=== PATIENT | male | born 1955 | race Caucasian/White ===

== ENCOUNTER 2018-07-12 15:07 | Inpatient (IN) | payer OTHER, SELFPAY ==
[~2018-07-12] VITALS: Ht 177.8 cm; Wt 89.1 kg
[2018-07-12] MEDS ORDERED: SODIUM CHLORIDE 0.9% 1,000 ML IV ONE (15:19)
[2018-07-12 15:44] LABS: BASOPHILS # (AUTO) 0.01 x10^3/uL (0-0.1); BASOPHILS % (AUTO) 0 % (0-1); EOSINOPHILS # (AUTO) 0.09 x10^3/uL (0-0.4); EOSINOPHILS % (AUTO) 1 % (1-7); LYMPHOCYTES # (AUTO) 0.84 x10^3/uL (1-3.4); LYMPHOCYTES % (AUTO) 11 % (22-44); MD NO; MEAN CORPUSCULAR HGB CONC 33.8 g/dL (33.2-36.2); MEAN CORPUSCULAR VOLUME 88.7 fL (81-97); MEAN PLATELET VOLUME 7.7 fL (7.4-10.4); MONOCYTES # (AUTO) 0.56 x10^3/uL (0.2-0.8); MONOCYTES % (AUTO) 7 % (2-9); NEUTROPHILS # (AUTO) 6.27 x10^3/uL (1.8-6.8); NEUTROPHILS % (AUTO) 81 % (42-75); PLATELET COUNT 297 x10^3/uL (130-400); RED BLOOD COUNT 4.05 x10^6/uL (4.38-5.82); RED CELL DISTRIBUTION WIDTH 13.5 % (9.4-14.8)
[2018-07-12 15:57] LABS: ALBUMIN 2.4 g/dL (3.4-5.0); ANION GAP 11 mmol/L (5-15); CALCIUM 8.9 mg/dL (8.5-10.1); CHLORIDE 107 mmol/L (98-107)
[2018-07-12 15:58] LABS: CREATININE 1.13 mg/dL (0.7-1.3)
[2018-07-12] MEDS ORDERED: OMNIPAQUE 350 MG/ML, 100ML BOTTLE ONE (16:37)
[2018-07-12] MEDS ORDERED: GADOBUTROL 10 MMOL/10 ML PFS ONE (17:31)
[2018-07-12] MEDS ORDERED: VIT C (17:47)
[2018-07-12] MEDS ORDERED: MULTIVITAMIN (17:47)
[2018-07-12] MEDS ORDERED: CEPH-368 PO (17:47)
[2018-07-12] MEDS ORDERED: AMPICILLIN/SULBACTAM 3 GM in SODIUM CHLORIDE 0.9% 100 ML IV ONE (18:00)
[2018-07-12 20:27] VITALS: BP 135/101
[2018-07-12] MEDS ORDERED: ONDANSETRON 2MG/ML, 2ML IVPush PRN (21:30)
[2018-07-12] MEDS ORDERED: hydrALAzine 20 MG/ML, 1ML IVPush PRN (21:30)
[2018-07-12] MEDS ORDERED: TEMAZEPAM 15 MG CAPSULE PO PRN (21:30)
[2018-07-12] MEDS ORDERED: BISACODYL 10 MG SUPP PR PRN (21:30)
[2018-07-12] MEDS ORDERED: ACETAMINOPHEN 325 MG TABLET PO PRN (21:30)
[2018-07-12] MEDS: INDOMETHACIN 50 MG CAPSULE PO SCH (22:00)
[2018-07-12 22:26] VITALS: BP 130/84
[2018-07-12] MEDS ORDERED: INDOMETHACIN 25 MG CAPSULE ONE (22:31)
[2018-07-12] MEDS: AMPICILLIN/SULBACTAM 3 GM in SODIUM CHLORIDE 0.9% 100 ML IV SCH (23:40)
[2018-07-12 23:57] VITALS: BP 138/93
[2018-07-13] MEDS: AMPICILLIN/SULBACTAM 3 GM in SODIUM CHLORIDE 0.9% 100 ML IV SCH ×3 (05:12→18:48)
[2018-07-13 06:57] VITALS: BP 134/84
[2018-07-13] MEDS: INDOMETHACIN 50 MG CAPSULE PO SCH ×3 (09:40→21:33)
[2018-07-13] MEDS ORDERED: LIDOCAINE 1%-EPI 1:100K, 30ML ONE (11:50)
[2018-07-13] MEDS: ENOXAPARIN 40 MG/0.4 ML SQ SCH (12:35)
[2018-07-13 13:01] VITALS: BP 118/77
[2018-07-13] MEDS ORDERED: OMNIPAQUE 350 MG/ML, 75ML BOTTLE ONE (14:30)
[2018-07-13 19:50] VITALS: BP 110/66
[2018-07-14] MEDS: AMPICILLIN/SULBACTAM 3 GM in SODIUM CHLORIDE 0.9% 100 ML IV SCH ×3 (00:44→11:54)
[2018-07-14 02:45] VITALS: BP 126/91
[2018-07-14 05:24] LABS: ALBUMIN 1.9 g/dL (3.4-5.0); ANION GAP 10 mmol/L (5-15); CALCIUM 8.1 mg/dL (8.5-10.1); CHLORIDE 110 mmol/L (98-107)
[2018-07-14 05:27] LABS: ALANINE AMINOTRANSFERASE 11 U/L (12-78); ALKALINE PHOSPHATASE 111 U/L (45-117); BILIRUBIN,TOTAL 0.4 mg/dL (0.2-1.0); CREATININE 0.91 mg/dL (0.7-1.3); TOTAL PROTEIN 5.7 g/dL (6.4-8.2)
[2018-07-14 05:34] LABS: BASOPHILS # (AUTO) 0.02 x10^3/uL (0-0.1); BASOPHILS % (AUTO) 0 % (0-1); EOSINOPHILS # (AUTO) 0.13 x10^3/uL (0-0.4); EOSINOPHILS % (AUTO) 3 % (1-7); LYMPHOCYTES # (AUTO) 0.45 x10^3/uL (1-3.4); LYMPHOCYTES % (AUTO) 9 % (22-44); MD NO; MEAN CORPUSCULAR HEMOGLOBIN 30.3 pg (27.5-34.5); MEAN CORPUSCULAR HGB CONC 33.9 g/dL (33.2-36.2); MEAN CORPUSCULAR VOLUME 89.4 fL (81-97); MEAN PLATELET VOLUME 7.5 fL (7.4-10.4); MONOCYTES # (AUTO) 0.38 x10^3/uL (0.2-0.8); MONOCYTES % (AUTO) 8 % (2-9); NEUTROPHILS # (AUTO) 3.94 x10^3/uL (1.8-6.8); NEUTROPHILS % (AUTO) 80 % (42-75); PLATELET COUNT 223 x10^3/uL (130-400); RED BLOOD COUNT 3.43 x10^6/uL (4.38-5.82); RED CELL DISTRIBUTION WIDTH 13.7 % (9.4-14.8)
[2018-07-14 06:41] VITALS: BP 132/84
[2018-07-14] MEDS: INDOMETHACIN 50 MG CAPSULE PO SCH ×2 (09:01→17:09)
[2018-07-14] MEDS: ENOXAPARIN 40 MG/0.4 ML SQ SCH (11:54)
[2018-07-14 13:20] VITALS: BP 119/80
== END 2018-07-14 18:04 | disposition home or self-care (01) | DRG 840 ==
LOC: ED 17:52 → EDIP 18:13 → 3NW 20:15
PROVIDERS: ADMIT Internal Medicine; ATTEND Internal Medicine
PROC: 3E013GC Introduction of Other Therapeutic Substance into Subcutaneous Tissue, Percutaneous Approach (ICD-10-PCS; principal; 2018-07-13)
PROC: 0JB10ZX Excision of Face Subcutaneous Tissue and Fascia, Open Approach, Diagnostic (ICD-10-PCS; 2018-07-13)
DX: C83.31 Diffuse large B-cell lymphoma, lymph nodes of head, face, and neck (principal); E43 Unspecified severe protein-calorie malnutrition; C41.1 Malignant neoplasm of mandible; C78.00 Secondary malignant neoplasm of unspecified lung; L02.01 Cutaneous abscess of face; M84.58XA Pathological fracture in neoplastic disease, other specified site, initial encounter for fracture; M89.8X8 Other specified disorders of bone, other site; M10.9 Gout, unspecified; R59.1 Generalized enlarged lymph nodes; F17.210 Nicotine dependence, cigarettes, uncomplicated; Z82.3 Family history of stroke; Z82.5 Family history of asthma and other chronic lower respiratory diseases; Z83.3 Family history of diabetes mellitus
CPT/HCPCS: 36415; 70487; 70543; 71260; 80048; 80053; 82040; 83605; 83735; 84100; 84145; 84550; 85025; 87040; 88305; 88331; 88341; 88342; 88360; 90656; 99285; A9585; G0378; J0295; J1650; J3490; Q9967; J7030

== ENCOUNTER 2018-07-22 21:12 | Inpatient (IN) | payer OTHER ==
[~2018-07-22] VITALS: Ht 177.8 cm; Wt 84.2 kg
[~2018-07-22 21:12] MED LIST: CEPH-368 PO; MULTIVITAMIN; VIT C
[2018-07-22 21:52] LABS: BASOPHILS # (AUTO) 0.01 x10^3/uL (0-0.1); BASOPHILS % (AUTO) 0 % (0-1); EOSINOPHILS # (AUTO) 0.03 x10^3/uL (0-0.4); EOSINOPHILS % (AUTO) 1 % (1-7); LYMPHOCYTES # (AUTO) 0.73 x10^3/uL (1-3.4); LYMPHOCYTES % (AUTO) 15 % (22-44); MD NO; MEAN CORPUSCULAR HEMOGLOBIN 29.5 pg (27.5-34.5); MEAN CORPUSCULAR HGB CONC 33.8 g/dL (33.2-36.2); MEAN CORPUSCULAR VOLUME 87.4 fL (81-97); MEAN PLATELET VOLUME 7.6 fL (7.4-10.4); MONOCYTES # (AUTO) 0.63 x10^3/uL (0.2-0.8); MONOCYTES % (AUTO) 13 % (2-9); NEUTROPHILS # (AUTO) 3.55 x10^3/uL (1.8-6.8); NEUTROPHILS % (AUTO) 72 % (42-75); PLATELET COUNT 251 x10^3/uL (130-400); RED BLOOD COUNT 3.35 x10^6/uL (4.38-5.82)
[2018-07-22 22:05] LABS: ALANINE AMINOTRANSFERASE 14 U/L (12-78); ALBUMIN 2.1 g/dL (3.4-5.0); ANION GAP 9 mmol/L (5-15); CALCIUM 8.6 mg/dL (8.5-10.1); CHLORIDE 103 mmol/L (98-107); CREATININE 1.15 mg/dL (0.7-1.3)
[2018-07-22 22:07] LABS: ALKALINE PHOSPHATASE 156 U/L (45-117); BILIRUBIN,TOTAL 0.5 mg/dL (0.2-1.0); TOTAL PROTEIN 6.3 g/dL (6.4-8.2)
[2018-07-22] MEDS ORDERED: OMNIPAQUE 350 MG/ML, 100ML BOTTLE ONE (22:20)
[2018-07-22] MEDS ORDERED: OXYC-302 PO (23:17)
--- NOTE | 2018-07-22 23:17 | NUR ---
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 vss stable facial lymphoma was started 2 weeks ago not pus and draining from the rt side face and swollen but swallow and drininking was ok per daughter report
--- NOTE | 2018-07-22 23:18 | NUR ---
lower abdomen is draining pus like or bowel ?? odorous smells vss stable pt will be admitted
[2018-07-22] MEDS ORDERED: PIPERACILLIN/TAZO/PMX 3.375GM 50 ML ONE (23:24)
[2018-07-22] MEDS ORDERED: PIPERACILLIN/TAZO/PMX 3.375GM 50 ML IVPB ONE (23:30)
[2018-07-22] MEDS ORDERED: VANCOMYCIN PER PHARMACY IV ONE (23:30)
[2018-07-22] MEDS ORDERED: VANCOMYCIN 1,600 MG in SODIUM CHLORIDE 0.9% 250 ML IV ONE (23:30)
[2018-07-22] MEDS ORDERED: SODIUM CHLORIDE 0.9% 1,000ML IVBOLUS ONE (23:30)
[2018-07-23] MEDS ORDERED: SODIUM CHLORIDE 0.9% 1,000 ML IV ONE (00:01)
[2018-07-23] MEDS ORDERED: MORPHINE SULFATE 4 MG/ML, 1ML IVPush PRN (00:30)
[2018-07-23] MEDS ORDERED: ONDANSETRON 2MG/ML, 2ML IVPush PRN ×2 (00:30→05:00)
[2018-07-23 01:25] VITALS: BP 125/79
[2018-07-23] MEDS ORDERED: hydrALAzine 20 MG/ML, 1ML IVPush PRN (05:00)
[2018-07-23] MEDS ORDERED: ONDANSETRON ODT 4 MG PO PRN (05:00)
[2018-07-23] MEDS ORDERED: ACETAMINOPHEN 325 MG TABLET PO PRN (05:00)
[2018-07-23] MEDS ORDERED: MEROPENEM 1 GM in SODIUM CHLORIDE 0.9% 100 ML IV SCH (05:00)
[2018-07-23] MEDS ORDERED: PROMETHAZINE 25 MG/ML, 1ML IM PRN (05:00)
[2018-07-23] MEDS: D5%-0.9% NACL+KCL 20MEQ 1,000 ML IV SCH ×3 (06:08→23:37)
[2018-07-23] MEDS: HEPARIN 5,000 UNITS/ML, 1ML SQ SCH ×3 (06:08→21:38)
[2018-07-23] MEDS: PIPERACILLIN/TAZO/PMX 3.375GM 50 ML IV SCH ×4 (06:08→23:37)
[2018-07-23 08:06] VITALS: BP 117/77
[2018-07-23] MEDS ORDERED: FENTANYL PF 100 MCG/2ML ONE (12:41)
[2018-07-23] MEDS ORDERED: MIDAZOLAM 1 MG/ML, 5ML ONE (12:41)
[2018-07-23] MEDS ORDERED: FLUMAZENIL 0.1 MG/1 ML, 5ML ONE (12:42)
[2018-07-23] MEDS ORDERED: NALOXONE 1 MG/ML, 2ML ONE (12:42)
[2018-07-23] MEDS ORDERED: LIDOCAINE-MPF 1%, 5ML ONE (13:08)
[2018-07-23 14:00] VITALS: BP 121/76
[2018-07-23 16:09] VITALS: BP 116/74
[2018-07-23 19:39] VITALS: BP 109/69
[2018-07-24 01:33] VITALS: BP_SYST 110; BP_SYST 111; BP_DIAS 64
[2018-07-24] MEDS: PIPERACILLIN/TAZO/PMX 3.375GM 50 ML IV SCH ×3 (05:29→17:47)
[2018-07-24] MEDS: HEPARIN 5,000 UNITS/ML, 1ML SQ SCH ×2 (05:43→15:53)
[2018-07-24 06:10] LABS: BASOPHILS # (AUTO) 0.03 x10^3/uL (0-0.1); BASOPHILS % (AUTO) 1 % (0-1); EOSINOPHILS % (AUTO) 3 % (1-7); LYMPHOCYTES # (AUTO) 0.46 x10^3/uL (1-3.4); LYMPHOCYTES % (AUTO) 15 % (22-44); MD NO; MEAN CORPUSCULAR HEMOGLOBIN 30.1 pg (27.5-34.5); MEAN CORPUSCULAR HGB CONC 34.4 g/dL (33.2-36.2); MEAN CORPUSCULAR VOLUME 87.7 fL (81-97); MEAN PLATELET VOLUME 7.8 fL (7.4-10.4); MONOCYTES # (AUTO) 0.34 x10^3/uL (0.2-0.8); MONOCYTES % (AUTO) 11 % (2-9); NEUTROPHILS # (AUTO) 2.13 x10^3/uL (1.8-6.8); NEUTROPHILS % (AUTO) 70 % (42-75); PLATELET COUNT 199 x10^3/uL (130-400); RED CELL DISTRIBUTION WIDTH 14.1 % (9.4-14.8)
[2018-07-24 06:17] LABS: ALBUMIN 1.9 g/dL (3.4-5.0); CALCIUM 7.9 mg/dL (8.5-10.1); CHLORIDE 109 mmol/L (98-107)
[2018-07-24 06:24] LABS: ALANINE AMINOTRANSFERASE 13 U/L (12-78); ALKALINE PHOSPHATASE 165 U/L (45-117); ANION GAP 8 mmol/L (5-15); BILIRUBIN,TOTAL 0.4 mg/dL (0.2-1.0); CREATININE 0.82 mg/dL (0.7-1.3); TOTAL PROTEIN 5.5 g/dL (6.4-8.2)
[2018-07-24 07:50] VITALS: BP 133/70
[2018-07-24] MEDS: SODIUM CHLORIDE 0.9% 1,000 ML IV SCH ×2 (10:12→21:13)
[2018-07-24] MEDS: morphine SULFATE 10 MG/ML, 1ML IVPush PRN ×2 (10:43→21:13)
[2018-07-24] MEDS: SILVER SULF. CRM 1% , 25GM TP SCH ×2 (12:11→21:15)
[2018-07-24 15:15] VITALS: BP 141/86
[2018-07-24 19:31] VITALS: BP 139/82
[2018-07-24] MEDS ORDERED: MORPHINE SULFATE 4 MG/ML, 1ML ONE (21:09)
[2018-07-25] MEDS: HEPARIN 5,000 UNITS/ML, 1ML SQ SCH ×4 (00:17→23:44)
[2018-07-25] MEDS: PIPERACILLIN/TAZO/PMX 3.375GM 50 ML IV SCH ×5 (00:17→23:43)
[2018-07-25] MEDS ORDERED: MORPHINE SULFATE 4 MG/ML, 1ML ONE (01:14)
[2018-07-25] MEDS: morphine SULFATE 10 MG/ML, 1ML IVPush PRN ×4 (01:16→20:51)
[2018-07-25 01:26] VITALS: BP 131/78
[2018-07-25] MEDS: SODIUM CHLORIDE 0.9% 1,000 ML IV SCH ×4 (05:46→17:22)
[2018-07-25 07:10] VITALS: BP 133/84
[2018-07-25] MEDS: SILVER SULF. CRM 1% , 25GM TP SCH ×2 (08:53→22:26)
[2018-07-25] MEDS: ALLOPURINOL 300 MG TABLET PO SCH (13:30)
[2018-07-25 15:44] VITALS: BP 142/93
[2018-07-25] MEDS ORDERED: ACETAMINOPHEN 325 MG TABLET PO ONE (16:30)
[2018-07-25] MEDS ORDERED: FAMOTIDINE 20 MG/2 ML IVPush ONE (16:30)
[2018-07-25] MEDS ORDERED: DIPHENHYDRAMINE 50 MG/ML, 1ML IVPush ONE (16:30)
[2018-07-25] MEDS ORDERED: RITUXIMAB IV ONE (17:00)
[2018-07-25] MEDS ORDERED: SODIUM CHLORIDE 0.9% IV ONE (17:00)
[2018-07-25] MEDS ORDERED: HYDROCORTISONE 100 MG INJ. IVPush ONE (20:00)
[2018-07-25 20:33] VITALS: BP 157/94
[2018-07-26] VITALS (7 sets, daily range): BP systolic 113–160; BP diastolic 77–103
[2018-07-26] MEDS ORDERED: SODIUM CHLORIDE 0.9% IVPB ONE (00:30)
[2018-07-26] MEDS ORDERED: predniSONE 50MG TABLET PO SCH (00:30)
[2018-07-26] MEDS ORDERED: ONDANSETRON IVPB ONE (00:30)
[2018-07-26] MEDS ORDERED: CYCLOPHOSPHAMIDE IV ONE (01:00)
[2018-07-26] MEDS ORDERED: SODIUM CHLORIDE 0.9% IV ONE (01:00)
[2018-07-26] MEDS ORDERED: DOXORUBICIN IV ONE (01:30)
[2018-07-26 04:13] LABS: MEAN CORPUSCULAR HEMOGLOBIN 29.1 pg (27.5-34.5); MEAN CORPUSCULAR HGB CONC 33.2 g/dL (33.2-36.2); MEAN CORPUSCULAR VOLUME 87.7 fL (81-97); MEAN PLATELET VOLUME 7.6 fL (7.4-10.4); PLATELET COUNT 278 x10^3/uL (130-400); RED BLOOD COUNT 3.76 x10^6/uL (4.38-5.82); RED CELL DISTRIBUTION WIDTH 13.9 % (9.4-14.8)
[2018-07-26 04:22] LABS: ALBUMIN 1.9 g/dL (3.4-5.0); ANION GAP 10 mmol/L (5-15); CALCIUM 8.1 mg/dL (8.5-10.1); CHLORIDE 104 mmol/L (98-107)
[2018-07-26 04:25] LABS: ALANINE AMINOTRANSFERASE 14 U/L (12-78); ALKALINE PHOSPHATASE 184 U/L (45-117); BILIRUBIN,TOTAL 0.4 mg/dL (0.2-1.0); CREATININE 0.91 mg/dL (0.7-1.3); TOTAL PROTEIN 5.5 g/dL (6.4-8.2)
[2018-07-26 04:27] LABS: BASOPHILS % (AUTO) 0 % (0-1); EOSINOPHILS # (AUTO) 0.01 x10^3/uL (0-0.4); EOSINOPHILS % (AUTO) 0 % (1-7); LYMPHOCYTES # (AUTO) 0.15 x10^3/uL (1-3.4); LYMPHOCYTES % (AUTO) 1 % (22-44); MD SCAN; MONOCYTES % (AUTO) 1 % (2-9); NEUTROPHILS # (AUTO) 11.45 x10^3/uL (1.8-6.8); NEUTROPHILS % (AUTO) 98 % (42-75)
[2018-07-26] MEDS: PIPERACILLIN/TAZO/PMX 3.375GM 50 ML IV SCH ×4 (05:40→23:44)
[2018-07-26] MEDS ORDERED: HYDROCORTISONE 100 MG INJ. IVPush PRN (09:00)
[2018-07-26] MEDS: SILVER SULF. CRM 1% , 25GM TP SCH ×2 (09:40→20:31)
[2018-07-26] MEDS: ALLOPURINOL 300 MG TABLET PO SCH (09:40)
[2018-07-26] MEDS: HEPARIN 5,000 UNITS/ML, 1ML SQ SCH ×3 (09:42→23:45)
[2018-07-26 12:51] LABS: CLOSTRIDIUM DIFFICILE ANTIGEN NEGATIVE; CLOSTRIDIUM DIFFICILE TOXIN NEGATIVE (Negative)
[2018-07-26] MEDS: SODIUM CHLORIDE 0.9% 1,000 ML IV SCH (14:37)
[2018-07-26] MEDS: morphine SULFATE 10 MG/ML, 1ML IVPush PRN ×3 (15:58→19:24)
[2018-07-26] MEDS: predniSONE 50MG TABLET PO SCH (20:31)
[2018-07-27 02:27] VITALS: BP 136/91
[2018-07-27] MEDS: PIPERACILLIN/TAZO/PMX 3.375GM 50 ML IV SCH ×4 (05:24→23:37)
[2018-07-27] MEDS: SODIUM CHLORIDE 0.9% 1,000 ML IV SCH ×3 (05:24→19:25)
[2018-07-27 05:47] LABS: MEAN CORPUSCULAR HEMOGLOBIN 29.3 pg (27.5-34.5); MEAN CORPUSCULAR HGB CONC 33.6 g/dL (33.2-36.2); MEAN CORPUSCULAR VOLUME 87.3 fL (81-97); MEAN PLATELET VOLUME 7.4 fL (7.4-10.4); PLATELET COUNT 320 x10^3/uL (130-400); RED BLOOD COUNT 3.76 x10^6/uL (4.38-5.82); RED CELL DISTRIBUTION WIDTH 14.1 % (9.4-14.8)
[2018-07-27 06:03] LABS: ALBUMIN 1.9 g/dL (3.4-5.0); ANION GAP 8 mmol/L (5-15); CALCIUM 8.2 mg/dL (8.5-10.1); CHLORIDE 105 mmol/L (98-107)
[2018-07-27 06:06] LABS: MD YES
[2018-07-27 06:08] LABS: ALANINE AMINOTRANSFERASE 13 U/L (12-78); ALKALINE PHOSPHATASE 165 U/L (45-117); BILIRUBIN,TOTAL 0.3 mg/dL (0.2-1.0); CREATININE 0.92 mg/dL (0.7-1.3); TOTAL PROTEIN 5.8 g/dL (6.4-8.2)
[2018-07-27 06:09] LABS: BAND#(MANUAL) 0.26 x10^3/uL; BANDS%(MANUAL) 3 % (0-7); LYMPH#(MANUAL) 0.26 x10^3/uL (1-3.4); LYMPHS% (MANUAL) 3 % (22-44); MONOS#(MANUAL) 0.09 x10^3/uL (0.3-2.7); MONOS% (MANUAL) 1 % (2-9); SEG#(MANUAL) 7.91 x10^3/uL (1.8-6.8); SEGS% (MANUAL) 93 % (42-75)
[2018-07-27 06:11] LABS: <PLATELET ESTIMATE> ADEQUATE; <PLT MORPHOLOGY> NORMAL PLT MORPH
[2018-07-27 06:12] LABS: <RBC MORPHOLOGY> NORMAL
[2018-07-27 07:33] VITALS: BP 127/85
[2018-07-27] MEDS: ALLOPURINOL 300 MG TABLET PO SCH (08:11)
[2018-07-27] MEDS: HEPARIN 5,000 UNITS/ML, 1ML SQ SCH ×3 (08:11→23:37)
[2018-07-27] MEDS: SILVER SULF. CRM 1% , 25GM TP SCH ×2 (08:12→19:37)
[2018-07-27] MEDS: morphine SULFATE 10 MG/ML, 1ML IVPush PRN ×3 (11:55→19:24)
[2018-07-27 14:17] VITALS: BP 136/83
[2018-07-27 19:27] VITALS: BP 116/77
[2018-07-27] MEDS: predniSONE 50MG TABLET PO SCH (20:57)
[2018-07-28 02:27] VITALS: BP 129/84
[2018-07-28] MEDS: SODIUM CHLORIDE 0.9% 1,000 ML IV SCH ×3 (02:31→18:15)
[2018-07-28] MEDS: PIPERACILLIN/TAZO/PMX 3.375GM 50 ML IV SCH ×4 (05:37→23:38)
[2018-07-28 05:52] LABS: MEAN CORPUSCULAR HEMOGLOBIN 29.4 pg (27.5-34.5); MEAN CORPUSCULAR HGB CONC 33.6 g/dL (33.2-36.2); MEAN CORPUSCULAR VOLUME 87.6 fL (81-97); MEAN PLATELET VOLUME 7.4 fL (7.4-10.4); PLATELET COUNT 286 x10^3/uL (130-400); RED BLOOD COUNT 3.49 x10^6/uL (4.38-5.82); RED CELL DISTRIBUTION WIDTH 14.1 % (9.4-14.8)
[2018-07-28 06:07] LABS: ANION GAP 10 mmol/L (5-15); CALCIUM 7.9 mg/dL (8.5-10.1); CHLORIDE 107 mmol/L (98-107)
[2018-07-28 06:12] LABS: ALANINE AMINOTRANSFERASE 14 U/L (12-78); ALKALINE PHOSPHATASE 145 U/L (45-117); BILIRUBIN,TOTAL 0.2 mg/dL (0.2-1.0); CREATININE 0.92 mg/dL (0.7-1.3); TOTAL PROTEIN 5.6 g/dL (6.4-8.2)
[2018-07-28 06:20] LABS: BASOPHILS % (AUTO) 0 % (0-1); EOSINOPHILS % (AUTO) 0 % (1-7); LYMPHOCYTES % (AUTO) 2 % (22-44); MD SCAN; MONOCYTES # (AUTO) 0.03 x10^3/uL (0.2-0.8); MONOCYTES % (AUTO) 0 % (2-9); NEUTROPHILS % (AUTO) 97 % (42-75)
[2018-07-28 07:54] VITALS: BP 113/73
[2018-07-28] MEDS: ALLOPURINOL 300 MG TABLET PO SCH (08:08)
[2018-07-28] MEDS: HEPARIN 5,000 UNITS/ML, 1ML SQ SCH ×3 (08:09→23:39)
[2018-07-28] MEDS: SILVER SULF. CRM 1% , 25GM TP SCH ×2 (08:09→20:31)
[2018-07-28] MEDS ORDERED: CATHFLO-ALTEPLASE 2 MG/2 ML CATHFLUSH ONE ×2 (08:30→09:30)
[2018-07-28 13:20] VITALS: BP 132/83
[2018-07-28 19:57] VITALS: BP 126/80
[2018-07-28] MEDS: predniSONE 50MG TABLET PO SCH (20:30)
[2018-07-29 01:01] VITALS: BP 130/80
[2018-07-29] MEDS: SODIUM CHLORIDE 0.9% 1,000 ML IV SCH ×4 (01:35→22:19)
[2018-07-29] MEDS: PIPERACILLIN/TAZO/PMX 3.375GM 50 ML IV SCH ×2 (05:05→12:16)
[2018-07-29 05:28] LABS: ALANINE AMINOTRANSFERASE 15 U/L (12-78); ANION GAP 7 mmol/L (5-15); CALCIUM 8.1 mg/dL (8.5-10.1); CHLORIDE 109 mmol/L (98-107)
[2018-07-29 05:30] LABS: ALKALINE PHOSPHATASE 158 U/L (45-117); BILIRUBIN,TOTAL 0.3 mg/dL (0.2-1.0); TOTAL PROTEIN 5.3 g/dL (6.4-8.2)
[2018-07-29 06:07] LABS: MEAN CORPUSCULAR HEMOGLOBIN 29.8 pg (27.5-34.5); MEAN CORPUSCULAR HGB CONC 34.1 g/dL (33.2-36.2); MEAN CORPUSCULAR VOLUME 87.4 fL (81-97); MEAN PLATELET VOLUME 7.7 fL (7.4-10.4); PLATELET COUNT 213 x10^3/uL (130-400); RED BLOOD COUNT 3.07 x10^6/uL (4.38-5.82)
[2018-07-29 06:36] LABS: BASOPHILS % (AUTO) 0 % (0-1); EOSINOPHILS % (AUTO) 0 % (1-7); LYMPHOCYTES # (AUTO) 0.13 x10^3/uL (1-3.4); LYMPHOCYTES % (AUTO) 2 % (22-44); MD SCAN; MONOCYTES # (AUTO) 0.03 x10^3/uL (0.2-0.8); MONOCYTES % (AUTO) 1 % (2-9); NEUTROPHILS # (AUTO) 5.39 x10^3/uL (1.8-6.8); NEUTROPHILS % (AUTO) 97 % (42-75)
[2018-07-29] MEDS: HEPARIN 5,000 UNITS/ML, 1ML SQ SCH (07:50)
[2018-07-29 08:16] VITALS: BP 121/77
[2018-07-29] MEDS: ALLOPURINOL 300 MG TABLET PO SCH (08:22)
[2018-07-29] MEDS: SILVER SULF. CRM 1% , 25GM TP SCH ×2 (08:24→20:31)
[2018-07-29] MEDS ORDERED: TBO-FILGRASTIM 480 MCG/0.8 ML SQ SCH (11:00)
[2018-07-29 14:12] VITALS: BP 129/81
[2018-07-29] MEDS: predniSONE 50MG TABLET PO SCH (20:29)
[2018-07-29 20:48] VITALS: BP 136/81
[2018-07-30 01:45] VITALS: BP 132/81
[2018-07-30] MEDS: morphine SULFATE 10 MG/ML, 1ML IVPush PRN ×2 (02:06→21:03)
[2018-07-30 02:44] LABS: ALANINE AMINOTRANSFERASE 37 U/L (12-78); ALBUMIN 2.1 g/dL (3.4-5.0); ANION GAP 8 mmol/L (5-15); CALCIUM 8.1 mg/dL (8.5-10.1); CHLORIDE 106 mmol/L (98-107); CREATININE 0.76 mg/dL (0.7-1.3)
[2018-07-30 02:47] LABS: ALKALINE PHOSPHATASE 199 U/L (45-117); BILIRUBIN,TOTAL 0.5 mg/dL (0.2-1.0); TOTAL PROTEIN 5.6 g/dL (6.4-8.2)
[2018-07-30 02:52] LABS: MEAN CORPUSCULAR HEMOGLOBIN 29.1 pg (27.5-34.5); MEAN CORPUSCULAR HGB CONC 33.1 g/dL (33.2-36.2); MEAN CORPUSCULAR VOLUME 87.7 fL (81-97); MEAN PLATELET VOLUME 7.5 fL (7.4-10.4); PLATELET COUNT 227 x10^3/uL (130-400); RED BLOOD COUNT 3.32 x10^6/uL (4.38-5.82); RED CELL DISTRIBUTION WIDTH 14.5 % (9.4-14.8)
[2018-07-30 03:30] LABS: BASOPHILS % (AUTO) 0 % (0-1); EOSINOPHILS % (AUTO) 0 % (1-7); LYMPHOCYTES # (AUTO) 0.18 x10^3/uL (1-3.4); LYMPHOCYTES % (AUTO) 1 % (22-44); MD SCAN; MONOCYTES # (AUTO) 0.05 x10^3/uL (0.2-0.8); MONOCYTES % (AUTO) 0 % (2-9); NEUTROPHILS # (AUTO) 21.73 x10^3/uL (1.8-6.8); NEUTROPHILS % (AUTO) 99 % (42-75)
[2018-07-30] MEDS: SODIUM CHLORIDE 0.9% 1,000 ML IV SCH ×3 (05:05→21:03)
[2018-07-30 08:02] VITALS: BP 117/78
[2018-07-30] MEDS: SILVER SULF. CRM 1% , 25GM TP SCH ×2 (09:00→21:03)
[2018-07-30] MEDS: ALLOPURINOL 300 MG TABLET PO SCH (09:37)
[2018-07-30 14:57] VITALS: BP 144/81
[2018-07-30 18:58] VITALS: BP 145/89
[2018-07-31 00:55] VITALS: BP 142/77
[2018-07-31] MEDS: SODIUM CHLORIDE 0.9% 1,000 ML IV SCH ×5 (05:51→23:22)
[2018-07-31 06:19] LABS: BASOPHILS % (AUTO) 0 % (0-1); EOSINOPHILS # (AUTO) 0.02 x10^3/uL (0-0.4); EOSINOPHILS % (AUTO) 0 % (1-7); LYMPHOCYTES # (AUTO) 0.43 x10^3/uL (1-3.4); LYMPHOCYTES % (AUTO) 5 % (22-44); MD NO; MEAN CORPUSCULAR HEMOGLOBIN 29.2 pg (27.5-34.5); MEAN CORPUSCULAR HGB CONC 33.3 g/dL (33.2-36.2); MEAN CORPUSCULAR VOLUME 87.7 fL (81-97); MEAN PLATELET VOLUME 7.4 fL (7.4-10.4); MONOCYTES # (AUTO) 0.02 x10^3/uL (0.2-0.8); MONOCYTES % (AUTO) 0 % (2-9); NEUTROPHILS # (AUTO) 7.51 x10^3/uL (1.8-6.8); NEUTROPHILS % (AUTO) 94 % (42-75); PLATELET COUNT 201 x10^3/uL (130-400); RED BLOOD COUNT 3.14 x10^6/uL (4.38-5.82); RED CELL DISTRIBUTION WIDTH 14.7 % (9.4-14.8)
[2018-07-31 06:30] LABS: ALBUMIN 2.2 g/dL (3.4-5.0); ANION GAP 8 mmol/L (5-15); CALCIUM 7.9 mg/dL (8.5-10.1); CHLORIDE 108 mmol/L (98-107)
[2018-07-31 06:34] LABS: ALANINE AMINOTRANSFERASE 52 U/L (12-78); ALKALINE PHOSPHATASE 193 U/L (45-117); BILIRUBIN,TOTAL 0.7 mg/dL (0.2-1.0); CREATININE 0.57 mg/dL (0.7-1.3); TOTAL PROTEIN 5.4 g/dL (6.4-8.2)
[2018-07-31 08:14] VITALS: BP 141/81
[2018-07-31] MEDS: SILVER SULF. CRM 1% , 25GM TP SCH ×2 (09:00→20:07)
[2018-07-31] MEDS: ALLOPURINOL 300 MG TABLET PO SCH (09:54)
[2018-07-31 14:01] VITALS: BP 116/74
[2018-07-31] MEDS: morphine SULFATE 10 MG/ML, 1ML IVPush PRN ×2 (14:04→23:20)
[2018-07-31 19:17] VITALS: BP 128/75
[2018-08-01 01:14] VITALS: BP 127/85
[2018-08-01 06:07] LABS: ALANINE AMINOTRANSFERASE 56 U/L (12-78); ALBUMIN 2.2 g/dL (3.4-5.0); ANION GAP 8 mmol/L (5-15); CALCIUM 8.2 mg/dL (8.5-10.1); CHLORIDE 107 mmol/L (98-107)
[2018-08-01 06:10] LABS: ALKALINE PHOSPHATASE 205 U/L (45-117); BILIRUBIN,TOTAL 0.6 mg/dL (0.2-1.0); CREATININE 0.57 mg/dL (0.7-1.3); TOTAL PROTEIN 5.5 g/dL (6.4-8.2)
[2018-08-01 06:21] LABS: MEAN CORPUSCULAR HEMOGLOBIN 29.6 pg (27.5-34.5); MEAN CORPUSCULAR HGB CONC 34.1 g/dL (33.2-36.2); MEAN CORPUSCULAR VOLUME 86.9 fL (81-97); MEAN PLATELET VOLUME 7.7 fL (7.4-10.4); PLATELET COUNT 195 x10^3/uL (130-400); RED BLOOD COUNT 3.12 x10^6/uL (4.38-5.82); RED CELL DISTRIBUTION WIDTH 14.1 % (9.4-14.8)
[2018-08-01] MEDS: SODIUM CHLORIDE 0.9% 1,000 ML IV SCH ×3 (07:32→20:43)
[2018-08-01] MEDS: ALLOPURINOL 300 MG TABLET PO SCH (07:32)
[2018-08-01] MEDS: SILVER SULF. CRM 1% , 25GM TP SCH ×2 (07:33→20:49)
[2018-08-01 07:59] LABS: BASOPHILS % (AUTO) 0 % (0-1); EOSINOPHILS # (AUTO) 0.08 x10^3/uL (0-0.4); EOSINOPHILS % (AUTO) 3 % (1-7); LYMPHOCYTES # (AUTO) 0.41 x10^3/uL (1-3.4); LYMPHOCYTES % (AUTO) 13 % (22-44); MD SCAN; MONOCYTES # (AUTO) 0.01 x10^3/uL (0.2-0.8); MONOCYTES % (AUTO) 0 % (2-9); NEUTROPHILS # (AUTO) 2.61 x10^3/uL (1.8-6.8); NEUTROPHILS % (AUTO) 84 % (42-75)
[2018-08-01 08:34] VITALS: BP 119/85
[2018-08-01 13:43] VITALS: BP 111/78
[2018-08-01 19:42] VITALS: BP 137/85
[2018-08-01] MEDS: morphine SULFATE 10 MG/ML, 1ML IVPush PRN (21:36)
[2018-08-02 02:48] VITALS: BP 135/75
[2018-08-02] MEDS: SODIUM CHLORIDE 0.9% 1,000 ML IV SCH ×3 (03:07→16:54)
[2018-08-02 03:26] LABS: ANION GAP 7 mmol/L (5-15); CALCIUM 8.3 mg/dL (8.5-10.1); CHLORIDE 107 mmol/L (98-107); CREATININE 0.54 mg/dL (0.7-1.3)
[2018-08-02 03:27] LABS: ALANINE AMINOTRANSFERASE 47 U/L (12-78); ALBUMIN 2.2 g/dL (3.4-5.0)
[2018-08-02 03:29] LABS: ALKALINE PHOSPHATASE 202 U/L (45-117); BILIRUBIN,TOTAL 0.6 mg/dL (0.2-1.0); TOTAL PROTEIN 5.4 g/dL (6.4-8.2)
[2018-08-02 03:42] LABS: MEAN CORPUSCULAR HEMOGLOBIN 29.3 pg (27.5-34.5); MEAN CORPUSCULAR HGB CONC 33.7 g/dL (33.2-36.2); MEAN CORPUSCULAR VOLUME 87.1 fL (81-97); MEAN PLATELET VOLUME 7.9 fL (7.4-10.4); PLATELET COUNT 185 x10^3/uL (130-400); RED BLOOD COUNT 2.92 x10^6/uL (4.38-5.82); RED CELL DISTRIBUTION WIDTH 14.1 % (9.4-14.8)
[2018-08-02 04:05] LABS: MD YES
[2018-08-02 04:17] LABS: BAND#(MANUAL) 0.02 x10^3/uL; BANDS%(MANUAL) 1 % (0-7); BASOS% (MANUAL) 1 % (0-1); EOS#(MANUAL) 0.22 x10^3/uL (0.0-0.4); EOS% (MANUAL) 13 % (1-7); LYMPH#(MANUAL) 0.43 x10^3/uL (1-3.4); LYMPHS% (MANUAL) 25 % (22-44); MONOS#(MANUAL) 0.02 x10^3/uL (0.3-2.7); MONOS% (MANUAL) 1 % (2-9); SEG#(MANUAL) 0.99 x10^3/uL (1.8-6.8); SEGS% (MANUAL) 58 % (42-75)
[2018-08-02 04:18] LABS: BASOS#(MANUAL) 0.02 x10^3/uL (0-0.1); REACTIVE LYMPHS # (MANUAL) 0.02 x10^3/uL (0-0); REACTIVE LYMPHS % (MANUAL) 1 % (0-0)
[2018-08-02 04:19] LABS: <PLATELET ESTIMATE> ADEQUATE; <PLT MORPHOLOGY> NORMAL PLT MORPH; <RBC MORPHOLOGY> NORMAL
[2018-08-02 07:26] VITALS: BP 136/86
[2018-08-02] MEDS: SILVER SULF. CRM 1% , 25GM TP SCH ×2 (09:40→20:58)
[2018-08-02] MEDS: ALLOPURINOL 300 MG TABLET PO SCH (09:41)
[2018-08-02] MEDS: TBO-FILGRASTIM 480 MCG/0.8 ML SQ SCH (09:41)
[2018-08-02 12:54] VITALS: BP 129/74
[2018-08-02] MEDS ORDERED: LEVOFLOXACIN 500 MG TABLET PO SCH (16:00)
[2018-08-02] MEDS: morphine SULFATE 10 MG/ML, 1ML IVPush PRN ×2 (16:09→20:58)
[2018-08-02 19:36] LABS: CLOSTRIDIUM DIFFICILE ANTIGEN POSITIVE; CLOSTRIDIUM DIFFICILE TOXIN NEGATIVE (Negative)
[2018-08-02 20:30] VITALS: BP 136/82
[2018-08-02] MEDS: VANCOMYCIN 50 MG/ML ORAL SUSP PO SCH (20:58)
[2018-08-03 01:34] VITALS: BP 135/90
[2018-08-03] MEDS: VANCOMYCIN 50 MG/ML ORAL SUSP PO SCH ×4 (03:27→21:15)
[2018-08-03 04:12] LABS: ALANINE AMINOTRANSFERASE 35 U/L (12-78); ALBUMIN 2.2 g/dL (3.4-5.0); ANION GAP 8 mmol/L (5-15); CALCIUM 8.2 mg/dL (8.5-10.1); CHLORIDE 105 mmol/L (98-107); CREATININE 0.56 mg/dL (0.7-1.3)
[2018-08-03 04:15] LABS: ALKALINE PHOSPHATASE 217 U/L (45-117); BILIRUBIN,TOTAL 0.6 mg/dL (0.2-1.0); TOTAL PROTEIN 5.4 g/dL (6.4-8.2)
[2018-08-03 04:19] LABS: MEAN CORPUSCULAR HEMOGLOBIN 29.1 pg (27.5-34.5); MEAN CORPUSCULAR HGB CONC 33.9 g/dL (33.2-36.2); MEAN CORPUSCULAR VOLUME 85.9 fL (81-97); MEAN PLATELET VOLUME 7.9 fL (7.4-10.4); PLATELET COUNT 160 x10^3/uL (130-400); RED BLOOD COUNT 2.73 x10^6/uL (4.38-5.82); RED CELL DISTRIBUTION WIDTH 14.2 % (9.4-14.8)
[2018-08-03 04:54] LABS: MD YES
[2018-08-03 04:59] LABS: ANISOCYTOSIS 1+; BAND#(MANUAL) 0.05 x10^3/uL; BANDS%(MANUAL) 5 % (0-7); BASOS#(MANUAL) 0.05 x10^3/uL (0-0.1); BASOS% (MANUAL) 5 % (0-1); EOS#(MANUAL) 0.18 x10^3/uL (0.0-0.4); EOS% (MANUAL) 18 % (1-7); LYMPH#(MANUAL) 0.23 x10^3/uL (1-3.4); LYMPHS% (MANUAL) 23 % (22-44); MONOS#(MANUAL) 0.03 x10^3/uL (0.3-2.7); MONOS% (MANUAL) 3 % (2-9); OVALOCYTES 1+; SEG#(MANUAL) 0.46 x10^3/uL (1.8-6.8); SEGS% (MANUAL) 46 % (42-75)
[2018-08-03 05:00] LABS: <PLATELET ESTIMATE> ADEQUATE; <PLT MORPHOLOGY> NORMAL PLT MORPH
[2018-08-03 07:23] VITALS: BP 121/73
[2018-08-03] MEDS: TBO-FILGRASTIM 480 MCG/0.8 ML SQ SCH (07:37)
[2018-08-03] MEDS: SILVER SULF. CRM 1% , 25GM TP SCH ×2 (07:37→21:16)
[2018-08-03] MEDS: ALLOPURINOL 300 MG TABLET PO SCH (07:37)
[2018-08-03 12:25] VITALS: BP 117/80
[2018-08-03 19:43] VITALS: BP 127/69
[2018-08-03] MEDS: morphine SULFATE 10 MG/ML, 1ML IVPush PRN (19:58)
[2018-08-04 01:31] VITALS: BP 129/79
[2018-08-04] MEDS: morphine SULFATE 10 MG/ML, 1ML IVPush PRN ×2 (01:34→21:01)
[2018-08-04] MEDS: VANCOMYCIN 50 MG/ML ORAL SUSP PO SCH ×4 (03:30→21:01)
[2018-08-04 04:17] LABS: MEAN CORPUSCULAR HEMOGLOBIN 28.6 pg (27.5-34.5); MEAN CORPUSCULAR HGB CONC 33.5 g/dL (33.2-36.2); MEAN CORPUSCULAR VOLUME 85.3 fL (81-97); PLATELET COUNT 144 x10^3/uL (130-400); RED CELL DISTRIBUTION WIDTH 14.1 % (9.4-14.8)
[2018-08-04 04:19] LABS: ALANINE AMINOTRANSFERASE 34 U/L (12-78); ALBUMIN 2.3 g/dL (3.4-5.0); CALCIUM 8.6 mg/dL (8.5-10.1)
[2018-08-04 04:49] LABS: ALKALINE PHOSPHATASE 255 U/L (45-117); ANION GAP 10 mmol/L (5-15); BILIRUBIN,TOTAL 0.5 mg/dL (0.2-1.0); CHLORIDE 103 mmol/L (98-107); TOTAL PROTEIN 5.7 g/dL (6.4-8.2)
[2018-08-04 04:54] LABS: MD YES
[2018-08-04 05:04] LABS: ANISOCYTOSIS 1+; BAND#(MANUAL) 0.03 x10^3/uL; BANDS%(MANUAL) 4 % (0-7); BASOS#(MANUAL) 0.03 x10^3/uL (0-0.1); BASOS% (MANUAL) 4 % (0-1); EOS#(MANUAL) 0.05 x10^3/uL (0.0-0.4); EOS% (MANUAL) 6 % (1-7); LYMPH#(MANUAL) 0.29 x10^3/uL (1-3.4); LYMPHS% (MANUAL) 36 % (22-44); MONOS#(MANUAL) 0.08 x10^3/uL (0.3-2.7); MONOS% (MANUAL) 10 % (2-9); SEG#(MANUAL) 0.32 x10^3/uL (1.8-6.8); SEGS% (MANUAL) 40 % (42-75)
[2018-08-04 05:05] LABS: <PLATELET ESTIMATE> ADEQUATE; OVALOCYTES 1+; TEAR DROPS 1+
[2018-08-04 05:06] LABS: <PLT MORPHOLOGY> NORMAL PLT MORPH
[2018-08-04 08:00] VITALS: BP 115/70
[2018-08-04] MEDS: ALLOPURINOL 300 MG TABLET PO SCH (10:00)
[2018-08-04] MEDS: TBO-FILGRASTIM 480 MCG/0.8 ML SQ SCH (10:01)
[2018-08-04 15:00] VITALS: BP 103/62
[2018-08-04] MEDS: SILVER SULF. CRM 1% , 25GM TP SCH ×2 (15:15→21:00)
[2018-08-04 19:15] VITALS: BP 117/72
[2018-08-04] MEDS: HEPARIN 5,000 UNITS/ML, 1ML SQ SCH (21:01)
[2018-08-05 02:00] VITALS: BP 131/76
[2018-08-05] MEDS: VANCOMYCIN 50 MG/ML ORAL SUSP PO SCH ×4 (03:17→21:14)
[2018-08-05] MEDS: HEPARIN 5,000 UNITS/ML, 1ML SQ SCH ×3 (05:03→21:14)
[2018-08-05 05:36] LABS: MEAN CORPUSCULAR HGB CONC 33.9 g/dL (33.2-36.2); MEAN CORPUSCULAR VOLUME 85.5 fL (81-97); MEAN PLATELET VOLUME 8.1 fL (7.4-10.4); PLATELET COUNT 136 x10^3/uL (130-400); RED BLOOD COUNT 2.72 x10^6/uL (4.38-5.82); RED CELL DISTRIBUTION WIDTH 14.2 % (9.4-14.8)
[2018-08-05 05:39] LABS: ANION GAP 8 mmol/L (5-15); CALCIUM 8.6 mg/dL (8.5-10.1); CHLORIDE 103 mmol/L (98-107); CREATININE 0.59 mg/dL (0.7-1.3)
[2018-08-05 06:30] LABS: MD YES
[2018-08-05 06:36] LABS: BAND#(MANUAL) 0.05 x10^3/uL; BANDS%(MANUAL) 6 % (0-7); BASOS#(MANUAL) 0.02 x10^3/uL (0-0.1); BASOS% (MANUAL) 3 % (0-1); LYMPHS% (MANUAL) 37 % (22-44); MONOS#(MANUAL) 0.12 x10^3/uL (0.3-2.7); MONOS% (MANUAL) 15 % (2-9); NRBC % (MANUAL) 1 % (0-1)
[2018-08-05 06:37] LABS: EOS% (MANUAL) 12 % (1-7); SEG#(MANUAL) 0.22 x10^3/uL (1.8-6.8); SEGS% (MANUAL) 27 % (42-75)
[2018-08-05 06:38] LABS: ANISOCYTOSIS 1+
[2018-08-05 06:39] LABS: <PLATELET ESTIMATE> ADEQUATE; <PLT MORPHOLOGY> NORMAL PLT MORPH; POLYCHROMASIA 1+
[2018-08-05 07:39] VITALS: BP 111/64
[2018-08-05] MEDS ORDERED: MAGNESIUM SULFATE PMX IV ONE (09:00)
[2018-08-05] MEDS ORDERED: MAGNESIUM SULFATE IV ONE (09:00)
[2018-08-05] MEDS ORDERED: MAGNESIUM SULFATE PMX 4GM/100M 100 ML IV ONE (09:01)
[2018-08-05] MEDS: ALLOPURINOL 300 MG TABLET PO SCH (09:34)
[2018-08-05] MEDS: TBO-FILGRASTIM 480 MCG/0.8 ML SQ SCH (09:35)
[2018-08-05] MEDS: SILVER SULF. CRM 1% , 25GM TP SCH ×2 (09:36→21:00)
[2018-08-05 14:20] VITALS: BP 122/72
[2018-08-05] MEDS: morphine SULFATE 10 MG/ML, 1ML IVPush PRN ×2 (18:32→21:36)
[2018-08-05 19:57] VITALS: BP 108/64
[2018-08-06] MEDS: VANCOMYCIN 50 MG/ML ORAL SUSP PO SCH ×4 (03:33→21:11)
[2018-08-06 04:03] VITALS: BP 101/66
[2018-08-06 04:14] LABS: ALBUMIN 2.2 g/dL (3.4-5.0); ANION GAP 9 mmol/L (5-15); CALCIUM 8.6 mg/dL (8.5-10.1); CHLORIDE 103 mmol/L (98-107)
[2018-08-06 04:17] LABS: ALANINE AMINOTRANSFERASE 60 U/L (12-78); ALKALINE PHOSPHATASE 483 U/L (45-117); BILIRUBIN,TOTAL 0.5 mg/dL (0.2-1.0); CREATININE 0.73 mg/dL (0.7-1.3); TOTAL PROTEIN 6.2 g/dL (6.4-8.2)
[2018-08-06 04:24] LABS: MEAN CORPUSCULAR HEMOGLOBIN 28.9 pg (27.5-34.5); MEAN CORPUSCULAR HGB CONC 33.6 g/dL (33.2-36.2); MEAN CORPUSCULAR VOLUME 86.2 fL (81-97); MEAN PLATELET VOLUME 8.2 fL (7.4-10.4); PLATELET COUNT 150 x10^3/uL (130-400); RED BLOOD COUNT 2.97 x10^6/uL (4.38-5.82); RED CELL DISTRIBUTION WIDTH 14.7 % (9.4-14.8)
[2018-08-06 04:46] LABS: MD YES
[2018-08-06 04:55] LABS: ANISOCYTOSIS 1+; BAND#(MANUAL) 0.36 x10^3/uL; BANDS%(MANUAL) 13 % (0-7); BASOS#(MANUAL) 0.03 x10^3/uL (0-0.1); BASOS% (MANUAL) 1 % (0-1); LYMPH#(MANUAL) 0.73 x10^3/uL (1-3.4); LYMPHS% (MANUAL) 26 % (22-44); METAMYELOCYTES# (MANUAL) 0.03 x10^3/uL (0-0); METAMYELOCYTES% (MANUAL) 1 % (0-1); MONOS#(MANUAL) 0.25 x10^3/uL (0.3-2.7); MONOS% (MANUAL) 9 % (2-9); MYELOCYTES# (MANUAL) 0.03 x10^3/uL (0-0); MYELOCYTES% (MANUAL) 1 % (0-0); NRBC % (MANUAL) 1 % (0-1); POLYCHROMASIA 1+; SEG#(MANUAL) 1.37 x10^3/uL (1.8-6.8); SEGS% (MANUAL) 49 % (42-75)
[2018-08-06 04:56] LABS: <PLATELET ESTIMATE> ADEQUATE; <PLT MORPHOLOGY> NORMAL PLT MORPH
[2018-08-06] MEDS: HEPARIN 5,000 UNITS/ML, 1ML SQ SCH ×3 (05:39→21:11)
[2018-08-06 08:17] VITALS: BP 107/68
[2018-08-06] MEDS: ALLOPURINOL 300 MG TABLET PO SCH (09:46)
[2018-08-06] MEDS: TBO-FILGRASTIM 480 MCG/0.8 ML SQ SCH (09:46)
[2018-08-06] MEDS: SILVER SULF. CRM 1% , 25GM TP SCH ×2 (09:47→21:12)
[2018-08-06 14:21] VITALS: BP 103/70
[2018-08-06 19:09] VITALS: BP 102/68
[2018-08-06] MEDS: morphine SULFATE 10 MG/ML, 1ML IVPush PRN (21:11)
[2018-08-07 01:06] VITALS: BP 107/66
[2018-08-07] MEDS: VANCOMYCIN 50 MG/ML ORAL SUSP PO SCH ×4 (02:52→22:09)
[2018-08-07] MEDS: morphine SULFATE 10 MG/ML, 1ML IVPush PRN ×2 (04:01→18:31)
[2018-08-07] MEDS: HEPARIN 5,000 UNITS/ML, 1ML SQ SCH ×3 (04:36→22:09)
[2018-08-07 04:52] LABS: MEAN CORPUSCULAR HEMOGLOBIN 29.1 pg (27.5-34.5); MEAN CORPUSCULAR HGB CONC 33.7 g/dL (33.2-36.2); MEAN CORPUSCULAR VOLUME 86.2 fL (81-97); MEAN PLATELET VOLUME 8.3 fL (7.4-10.4); PLATELET COUNT 143 x10^3/uL (130-400); RED BLOOD COUNT 2.98 x10^6/uL (4.38-5.82); RED CELL DISTRIBUTION WIDTH 14.6 % (9.4-14.8)
[2018-08-07 04:58] LABS: ANION GAP 9 mmol/L (5-15); CALCIUM 8.7 mg/dL (8.5-10.1); CHLORIDE 104 mmol/L (98-107); CREATININE 0.69 mg/dL (0.7-1.3)
[2018-08-07 04:59] LABS: ALANINE AMINOTRANSFERASE 70 U/L (12-78); ALBUMIN 2.3 g/dL (3.4-5.0)
[2018-08-07 05:01] LABS: ALKALINE PHOSPHATASE 572 U/L (45-117); BILIRUBIN,TOTAL 0.4 mg/dL (0.2-1.0); TOTAL PROTEIN 6.1 g/dL (6.4-8.2)
[2018-08-07 05:59] LABS: MD YES
[2018-08-07 06:02] LABS: BAND#(MANUAL) 2.04 x10^3/uL; BANDS%(MANUAL) 28 % (0-7); LYMPH#(MANUAL) 0.29 x10^3/uL (1-3.4); LYMPHS% (MANUAL) 4 % (22-44); MONOS#(MANUAL) 0.29 x10^3/uL (0.3-2.7); MONOS% (MANUAL) 4 % (2-9); SEG#(MANUAL) 4.67 x10^3/uL (1.8-6.8); SEGS% (MANUAL) 64 % (42-75)
[2018-08-07 06:03] LABS: <PLATELET ESTIMATE> ADEQUATE; <PLT MORPHOLOGY> NORMAL PLT MORPH; ANISOCYTOSIS 1+
[2018-08-07 08:31] VITALS: BP 149/80
[2018-08-07] MEDS: ALLOPURINOL 300 MG TABLET PO SCH (09:53)
[2018-08-07] MEDS: TBO-FILGRASTIM 480 MCG/0.8 ML SQ SCH (09:53)
[2018-08-07] MEDS: SILVER SULF. CRM 1% , 25GM TP SCH ×2 (10:05→22:10)
[2018-08-07 14:40] VITALS: BP 115/77
[2018-08-07 20:46] VITALS: BP 114/75
[2018-08-08] MEDS: morphine SULFATE 10 MG/ML, 1ML IVPush PRN ×3 (00:52→22:23)
[2018-08-08 01:00] VITALS: BP 127/77
[2018-08-08] MEDS: VANCOMYCIN 50 MG/ML ORAL SUSP PO SCH ×4 (04:25→22:23)
[2018-08-08] MEDS: HEPARIN 5,000 UNITS/ML, 1ML SQ SCH ×3 (06:23→22:22)
[2018-08-08 07:59] VITALS: BP 116/74
[2018-08-08] MEDS: TBO-FILGRASTIM 480 MCG/0.8 ML SQ SCH (09:00)
[2018-08-08] MEDS: SILVER SULF. CRM 1% , 25GM TP SCH ×2 (09:12→22:23)
[2018-08-08] MEDS: ALLOPURINOL 300 MG TABLET PO SCH (09:12)
[2018-08-08 09:55] LABS: MEAN CORPUSCULAR HEMOGLOBIN 28.9 pg (27.5-34.5); MEAN CORPUSCULAR HGB CONC 33.5 g/dL (33.2-36.2); MEAN CORPUSCULAR VOLUME 86.3 fL (81-97); MEAN PLATELET VOLUME 7.9 fL (7.4-10.4); PLATELET COUNT 174 x10^3/uL (130-400); RED BLOOD COUNT 3.14 x10^6/uL (4.38-5.82); RED CELL DISTRIBUTION WIDTH 14.5 % (9.4-14.8)
[2018-08-08 10:04] LABS: ANION GAP 10 mmol/L (5-15); CHLORIDE 101 mmol/L (98-107); CREATININE 0.68 mg/dL (0.7-1.3)
[2018-08-08 10:08] LABS: MD YES
[2018-08-08 10:13] LABS: BAND#(MANUAL) 2.58 x10^3/uL; BANDS%(MANUAL) 21 % (0-7); EOS#(MANUAL) 0.25 x10^3/uL (0.0-0.4); EOS% (MANUAL) 2 % (1-7); LYMPH#(MANUAL) 1.23 x10^3/uL (1-3.4); LYMPHS% (MANUAL) 10 % (22-44); METAMYELOCYTES# (MANUAL) 0.12 x10^3/uL (0-0); METAMYELOCYTES% (MANUAL) 1 % (0-1); MONOS#(MANUAL) 0.49 x10^3/uL (0.3-2.7); MONOS% (MANUAL) 4 % (2-9); MYELOCYTES# (MANUAL) 0.12 x10^3/uL (0-0); MYELOCYTES% (MANUAL) 1 % (0-0); SEGS% (MANUAL) 61 % (42-75)
[2018-08-08 10:15] LABS: <PLATELET ESTIMATE> ADEQUATE; <PLT MORPHOLOGY> NORMAL PLT MORPH; ANISOCYTOSIS 1+; POLYCHROMASIA 1+; TOXIC GRAN 1+
[2018-08-08 12:53] VITALS: BP 112/74
[2018-08-08 20:48] VITALS: BP 116/76
[2018-08-09 00:52] VITALS: BP 119/74
[2018-08-09] MEDS: VANCOMYCIN 50 MG/ML ORAL SUSP PO SCH ×4 (04:25→21:31)
[2018-08-09] MEDS: HEPARIN 5,000 UNITS/ML, 1ML SQ SCH ×3 (06:12→21:34)
[2018-08-09 07:56] VITALS: BP 112/70
[2018-08-09] MEDS: ALLOPURINOL 300 MG TABLET PO SCH (10:25)
[2018-08-09] MEDS: SILVER SULF. CRM 1% , 25GM TP SCH ×2 (10:25→21:34)
[2018-08-09] MEDS ORDERED: CATHFLO-ALTEPLASE 2 MG/2 ML CATHFLUSH ONE (11:00)
[2018-08-09 13:26] VITALS: BP 107/71
[2018-08-09] MEDS: morphine SULFATE 10 MG/ML, 1ML IVPush PRN ×2 (15:33→19:36)
[2018-08-09 19:34] VITALS: BP 118/77
[2018-08-10 02:11] VITALS: BP 103/69
[2018-08-10] MEDS: VANCOMYCIN 50 MG/ML ORAL SUSP PO SCH ×3 (03:54→15:16)
[2018-08-10] MEDS: HEPARIN 5,000 UNITS/ML, 1ML SQ SCH ×2 (05:35→14:41)
[2018-08-10 08:01] VITALS: BP 125/78
[2018-08-10] MEDS: ALLOPURINOL 300 MG TABLET PO SCH (08:57)
[2018-08-10] MEDS: SILVER SULF. CRM 1% , 25GM TP SCH (08:57)
[2018-08-10] MEDS ORDERED: VANC1VIA3 PO ×2 (13:44)
[2018-08-10] MEDS ORDERED: SILV25CR6 TP (13:44)
[2018-08-10] MEDS ORDERED: ALLO300T PO (13:44)
== END 2018-08-10 15:28 | disposition home health service (06) | DRG 820 ==
LOC: ED 22:18 → EDIP 07-23 00:01 → 4NOR 07-23 01:08 → 3NW 07-23 15:58
PROVIDERS: ADMIT Hospitalist; ATTEND Hospitalist
PROC: 02HV33Z Insertion of Infusion Device into Superior Vena Cava, Percutaneous Approach (ICD-10-PCS; principal; 2018-07-23)
PROC: B548ZZA Ultrasonography of Superior Vena Cava, Guidance (ICD-10-PCS; 2018-07-23)
PROC: 0WBF3ZX Excision of Abdominal Wall, Percutaneous Approach, Diagnostic (ICD-10-PCS; 2018-07-23)
PROC: 07DR3ZX Extraction of Iliac Bone Marrow, Percutaneous Approach, Diagnostic (ICD-10-PCS; 2018-07-23)
DX: C85.10 Unspecified B-cell lymphoma, unspecified site (principal); E43 Unspecified severe protein-calorie malnutrition; K56.600 Partial intestinal obstruction, unspecified as to cause; A04.72 Enterocolitis due to Clostridium difficile, not specified as recurrent; K43.6 Other and unspecified ventral hernia with obstruction, without gangrene; C83.30 Diffuse large B-cell lymphoma, unspecified site; L03.311 Cellulitis of abdominal wall; D70.1 Agranulocytosis secondary to cancer chemotherapy; G62.9 Polyneuropathy, unspecified; D64.9 Anemia, unspecified; T45.1X5A Adverse effect of antineoplastic and immunosuppressive drugs, initial encounter; T38.0X5A Adverse effect of glucocorticoids and synthetic analogues, initial encounter; Z51.5 Encounter for palliative care; Z93.3 Colostomy status; Z82.5 Family history of asthma and other chronic lower respiratory diseases; Z88.8 Allergy status to other drugs, medicaments and biological substances; Z68.26 Body mass index [BMI] 26.0-26.9, adult; Y92.89 Other specified places as the place of occurrence of the external cause
CPT/HCPCS: 36415; 77001; 84145; 99291; J3370; J3490; 0399T; 36569; 38222; 49180; 71045; 74177; 76937; 77012; 80048; 80053; 82962; 83605; 83615; 83735; 84100; 84550; 85025; 85060; 85097; 86704; 86706; 86708; 86803; 87040; 87324; 87340; 88237; 88264; 88280; 88305; 88311; 88313; 88341; 88342; 88360; 93306; 96365; 96366; 96375; G0378; J1644; J2250; J2405; J2543; J2997; J3010; J9000; J9070; Q9967; A9552; C1751; J0360; J1200; J1447; J1720; J2270; J2310; J3475; J3480; J7030; J7050; J7512; J9310; J9370

== ENCOUNTER 2018-09-01 20:53 | Inpatient (IN) | payer OTHER ==
[~2018-09-01] VITALS: Ht 172.7 cm; Wt 87.2 kg
[~2018-09-01 20:53] MED LIST changes: +ALLO300T PO; +OXYC-302 PO; +SILV25CR6 TP; +VANC1VIA3 PO
[2018-09-01] MEDS ORDERED: ACYCLOVIR PO (21:25)
[2018-09-01] MEDS ORDERED: FLUCONAZOLE PO (21:25)
[2018-09-01] MEDS ORDERED: LEVAQUIN PO (21:25)
--- NOTE | 2018-09-01 21:32 | NUR ---
PT PRESENTS TO TRAUMA 3 WITH WEAKNESS, LOW BP AND PALE SKIN. PT A&OX4. PT BP 77/47, HR 118. ERP HAS BEEN IN TO EVAL PT. ORDERS BEING PLACED. ABLE TO DRAW BLOOD OFF PT PICC. PT ON ALL MONITORS, IN HOSPITAL GOWN. BILAT BEDRAILS UP
[2018-09-01] MEDS ORDERED: SODIUM CHLORIDE 0.9% 1,000ML IVBOLUS ONE (22:00)
--- NOTE | 2018-09-01 22:02 | NUR ---
CXR DONE, LAB IN DRAWING BLOOD AT THIS TIME. FLUIDS CONTINUING TO INFUSE. SEE CHARTED VITALS.
[2018-09-01 22:05] LABS: ANION GAP 14 mmol/L (5-15); CALCIUM 7.9 mg/dL (8.5-10.1); CHLORIDE 102 mmol/L (98-107); CREATININE 1.59 mg/dL (0.7-1.3)
[2018-09-01 22:06] LABS: ALANINE AMINOTRANSFERASE 27 U/L (12-78); ALBUMIN 2.3 g/dL (3.4-5.0)
--- NOTE | 2018-09-01 22:07 | NUR ---
blood cultures drawn
[2018-09-01 22:10] LABS: ALKALINE PHOSPHATASE 212 U/L (45-117); BILIRUBIN,TOTAL 0.6 mg/dL (0.2-1.0); MEAN CORPUSCULAR HEMOGLOBIN 29.2 pg (27.5-34.5); MEAN CORPUSCULAR HGB CONC 34.1 g/dL (33.2-36.2); MEAN CORPUSCULAR VOLUME 85.8 fL (81-97); MEAN PLATELET VOLUME 8.7 fL (7.4-10.4); PLATELET COUNT 74 x10^3/uL (130-400); RED BLOOD COUNT 2.37 x10^6/uL (4.38-5.82); RED CELL DISTRIBUTION WIDTH 17.3 % (9.4-14.8); TOTAL PROTEIN 5.4 g/dL (6.4-8.2)
[2018-09-01 22:15] LABS: MD YES
[2018-09-01 22:23] LABS: ANISOCYTOSIS 1+; BAND#(MANUAL) 0.39 x10^3/uL; BANDS%(MANUAL) 35 % (0-7); EOS#(MANUAL) 0.02 x10^3/uL (0.0-0.4); EOS% (MANUAL) 2 % (1-7); LYMPH#(MANUAL) 0.07 x10^3/uL (1-3.4); LYMPHS% (MANUAL) 6 % (22-44); METAMYELOCYTES# (MANUAL) 0.04 x10^3/uL (0-0); METAMYELOCYTES% (MANUAL) 4 % (0-1); MONOS#(MANUAL) 0.17 x10^3/uL (0.3-2.7); MONOS% (MANUAL) 15 % (2-9); NRBC % (MANUAL) 6 % (0-1); POLYCHROMASIA 1+; SEG#(MANUAL) 0.42 x10^3/uL (1.8-6.8); SEGS% (MANUAL) 38 % (42-75)
[2018-09-01 22:24] LABS: TEAR DROPS 1+
[2018-09-01 22:25] LABS: MICROCYTOSIS 1+
[2018-09-01 22:28] LABS: <PLATELET ESTIMATE> DECREASED; LARGE PLATELETS 1+
--- NOTE | 2018-09-01 22:28 | NUR ---
EKG DONE. PT ROOM PLACED ON NEUTROPENIC PRECAUTIONS. REVIEWED BLOOD CONSENT WITH PT. PT SIGNED CONSENT TO RECEIVE BLOOD. PT BP HAS SMALL IMPROVEMENT. PT STILL UNABLE TO PRODUCE URINE SAMPLE, ERP AWARE. OK TO WAIT TILL AFTER FLUIDS AND BLOOD DONE TO SEE IF PT CAN VOID.
[2018-09-01] MEDS ORDERED: PIPERACILLIN/TAZO/PMX 3.375GM 50 ML IVPB ONE (22:30)
[2018-09-01] MEDS ORDERED: VANCOMYCIN PER PHARMACY IV ONE (22:30)
[2018-09-01] MEDS ORDERED: VANCOMYCIN 1,600 MG in SODIUM CHLORIDE 0.9% 250 ML IV ONE (22:30)
[2018-09-01] MEDS ORDERED: PIPERACILLIN/TAZO/PMX 3.375GM 50 ML ONE (22:31)
--- NOTE | 2018-09-01 22:43 | NUR ---
RADHA-DAUGHTER [phone]
[2018-09-01] MEDS ORDERED: OMNIPAQUE 350 MG/ML, 100ML BOTTLE ONE (22:50)
--- NOTE | 2018-09-01 22:52 | NUR ---
PT TO CT AT THIS TIME.
[2018-09-01 23:27] VITALS: BP 88/54
[2018-09-01 23:31] VITALS: BP 88/54
--- NOTE | 2018-09-01 23:32 | NUR ---
PT BACK FROM CT. ORDERED ABX INFUSING. PT BP SHOWS SMALL IMPROVEMENT, SEE CHARTED ON TRANFUSION RECORD. ORDERED BLOOD STARTED.
--- NOTE | 2018-09-01 23:36 | NUR ---
RED PORT ON PT PICC DOES NOT FLUSH. SECOND IV STARTED, SEE CHARTED. BLOOD INFUSING THROUGH IV. PT RESTING CALMLY IN BED WITH EYES CLOSED. PT ASKED TO USE BATHROOM. OFFERED BEDSIDE COMMODE, PT REFUSED. EXPLAINED TO PT THAT WITH BLOOD RUNNING AND BP STILL LOW, IT IS UNSAFE TO WALK TO A BATHROOM. PT STATED HE WILL TRY LATER. BILAT BEDRAILS UP. WILL CONTINUE TO MONITOR.
[2018-09-01] MEDS ORDERED: POTASSIUM CHLORIDE 20 MEQ in SODIUM CHLORIDE 0.9% 1,000 ML IV ONE (23:45)
--- NOTE | 2018-09-02 00:05 | NUR ---
bedside COMMODE IN ROOM. PT DOZING OFF AND ON. PT FAMILY STILL AT BEDSIDE. NO REACTION TO BLOOD PRODUCTS OBSERVED AT THIS TIME. HOSPITALIST IN SPEAKING WITH PT AND FAMILY.
--- NOTE | 2018-09-02 00:10 | NUR ---
LEFT MESSAGE FOR HOSPITAL BED, PT TO BE ADMITTED TO ICU, HOWEVER NO ICU BEDS AVAILABLE AT THIS TIME.
[2018-09-02 01:00] VITALS: BP 102/54
--- NOTE | 2018-09-02 01:03 | NUR ---
BREAK RN: SECOND UNIT BLOOD INFUSING, VERIFIED WITH 2 RNS.
--- NOTE | 2018-09-02 01:04 | NUR ---
BREAK RN: HOSPITAL BED ORDERED FOR PATIENT
[2018-09-02 01:11] VITALS: BP 85/54
[2018-09-02 01:43] VITALS: BP 115/81
[2018-09-02] MEDS: SODIUM CHLORIDE 0.9% 1,000 ML IV SCH ×4 (01:47→23:50)
--- NOTE | 2018-09-02 01:53 | NUR ---
PT PLACED ON HOSPITAL BED. PT VSS MUCH IMPROVED, SEE CHARTED. SECOND UNIT OF BLOOD INFUSING AT THIS TIME. PT DAUGHTER REMAINS AT BEDSIDE. NO C/O PAIN FROM PT CURRENTLY. PT ABLE TO GET UP AND USE BEDSIDE COMMODE. PT ABLE TO STOOL ONLY.
[2018-09-02] MEDS ORDERED: GUAIFENESIN/DM 200-20MG, 10ML UDC PO PRN (02:00)
[2018-09-02] MEDS ORDERED: VANCOMYCIN PER PHARMACY MC PRN (02:00)
[2018-09-02] MEDS ORDERED: ACETAMINOPHEN 500 MG TABLET PO PRN (02:00)
[2018-09-02] MEDS ORDERED: ONDANSETRON 2MG/ML, 2ML IVPush PRN ×2 (02:00)
[2018-09-02] MEDS ORDERED: NS + 20MEQ KCL 1,000 ML IV ONE (02:04)
[2018-09-02] MEDS: POTASSIUM CHLORIDE 20 MEQ TAB.ER.PRT PO SCH ×3 (02:30→16:49)
[2018-09-02 02:49] VITALS: BP 88/55
--- NOTE | 2018-09-02 03:41 | NUR ---
PT RESTING IN BED WITH EYES CLOSED. NO C/O PAIN AT THIS TIME. ORDERED FLUIDS INFUSING. PT TROP REPEAT INCREASED. HAVE CONTACTED HOSPITALIST, AWAITING CALL BACK. Addendum: 09/02/18 at 0344 by FILEMON EKG DONE, SHOWN TO ERP LUÍS.
[2018-09-02] MEDS ORDERED: NOREPINEPHRINE 4 MG in SODIUM CHLORIDE 0.9% 246 ML IV PRN (04:00)
--- NOTE | 2018-09-02 04:21 | NUR ---
ORDERED PRESSOR DRIP INITIATED. PT RESTING CALMLY IN BED WITH EYES CLOSED. RESP EVEN AND NON LABORED. SEE CHARTED VITALS.
--- NOTE | 2018-09-02 04:56 | NUR ---
REPORT TO MAYO DONAHUE FOR ROOM 103-5
--- NOTE | 2018-09-02 04:56 | NUR ---
Marian morrison in [facility] - 09/02/18 at 0506 by [email or web address] REPORT TO MAYO DONAHUE FOR ROOM 103-5
[2018-09-02] MEDS: VANCOMYCIN 50 MG/ML ORAL SUSP PO SCH ×4 (05:02→20:13)
[2018-09-02] MEDS: PIPERACILLIN/TAZO/PMX 4.5GM 100 ML IV SCH ×4 (05:03→20:13)
[2018-09-02] MEDS ORDERED: CATHFLO-ALTEPLASE 2 MG/2 ML CATHFLUSH ONE ×3 (05:30→21:30)
[2018-09-02] MEDS: PERCOCET MC SCH ×3 (06:00→22:55)
[2018-09-02 06:15] LABS: MEAN CORPUSCULAR HEMOGLOBIN 29.8 pg (27.5-34.5); MEAN CORPUSCULAR HGB CONC 34.1 g/dL (33.2-36.2); MEAN CORPUSCULAR VOLUME 87.2 fL (81-97); MEAN PLATELET VOLUME 8.5 fL (7.4-10.4); PLATELET COUNT 75 x10^3/uL (130-400); RED BLOOD COUNT 2.73 x10^6/uL (4.38-5.82)
[2018-09-02 06:22] VITALS: BP 105/69
[2018-09-02 06:25] LABS: ALANINE AMINOTRANSFERASE 25 U/L (12-78); ANION GAP 11 mmol/L (5-15); CALCIUM 7.4 mg/dL (8.5-10.1); CHLORIDE 108 mmol/L (98-107)
[2018-09-02 06:27] LABS: ALKALINE PHOSPHATASE 176 U/L (45-117); BILIRUBIN,TOTAL 1.1 mg/dL (0.2-1.0); CREATININE 1.29 mg/dL (0.7-1.3); TOTAL PROTEIN 4.9 g/dL (6.4-8.2)
[2018-09-02] MEDS ORDERED: PHARMACOKINETIC MONITORING MC PRN (06:30)
[2018-09-02] MEDS ORDERED: PHARMACOKINETIC CONSULTATION MC ONE (06:30)
[2018-09-02 06:38] LABS: MD YES
[2018-09-02 06:44] LABS: BAND#(MANUAL) 1.03 x10^3/uL; BANDS%(MANUAL) 47 % (0-7); EOS#(MANUAL) 0.04 x10^3/uL (0.0-0.4); EOS% (MANUAL) 2 % (1-7); LYMPH#(MANUAL) 0.18 x10^3/uL (1-3.4); LYMPHS% (MANUAL) 8 % (22-44); METAMYELOCYTES# (MANUAL) 0.09 x10^3/uL (0-0); METAMYELOCYTES% (MANUAL) 4 % (0-1); MONOS#(MANUAL) 0.18 x10^3/uL (0.3-2.7); MONOS% (MANUAL) 8 % (2-9); NRBC % (MANUAL) 2 % (0-1); PMNS WITH VACUOLES 1+; REACTIVE LYMPHS # (MANUAL) 0.04 x10^3/uL (0-0); REACTIVE LYMPHS % (MANUAL) 2 % (0-0); SEG#(MANUAL) 0.64 x10^3/uL (1.8-6.8); SEGS% (MANUAL) 29 % (42-75)
[2018-09-02 06:45] LABS: ANISOCYTOSIS 1+; POLYCHROMASIA 1+; TEAR DROPS 1+
[2018-09-02 06:48] LABS: <PLATELET ESTIMATE> DECREASED; LARGE PLATELETS 1+; TOXIC GRAN 1+
[2018-09-02 06:48] LABS: CLOSTRIDIUM DIFFICILE ANTIGEN POSITIVE; CLOSTRIDIUM DIFFICILE TOXIN POSITIVE (Negative)
[2018-09-02] MEDS ORDERED: MAGNESIUM SULFATE 6 GM in SODIUM CHLORIDE 0.9% 150 ML IV ONE (08:00)
[2018-09-02] MEDS: ACYCLOVIR 400 MG TABLET PO SCH ×2 (08:22→21:07)
[2018-09-02] MEDS: FLUCONAZOLE 100 MG TABLET PO SCH (08:22)
[2018-09-02] MEDS: PANTOPRAZOLE 40 MG IV IVPush SCH (08:23)
[2018-09-02] MEDS: METRONIDAZOLE PMX 500MG/100ML 100 ML IV SCH ×3 (08:23→22:55)
[2018-09-02 08:39] LABS: MICROSCOPIC INDICATED
[2018-09-02 08:42] LABS: CULTURE INDICATED? YES
[2018-09-02] MEDS ORDERED: TBO-FILGRASTIM 480 MCG/0.8 ML SQ SCH (09:00)
[2018-09-02] MEDS: SILVER SULF. CRM 1% , 25GM TP SCH ×2 (09:20→21:08)
[2018-09-02] MEDS: VANCOMYCIN 1,800 MG in SODIUM CHLORIDE 0.9% 250 ML IV SCH (16:48)
[2018-09-02] MEDS: OXYcodone/APAP 5/325MG TABLET PO PRN (22:55)
[2018-09-02] MEDS ORDERED: VANCOMYCIN 1,600 MG in SODIUM CHLORIDE 0.9% 250 ML IV SCH (23:00)
[2018-09-03] MEDS ORDERED: CATHFLO-ALTEPLASE 2 MG/2 ML CATHFLUSH ONE
[2018-09-03] MEDS: VANCOMYCIN 50 MG/ML ORAL SUSP PO SCH ×4 (02:04→20:10)
[2018-09-03] MEDS: PIPERACILLIN/TAZO/PMX 4.5GM 100 ML IV SCH ×4 (02:04→20:36)
[2018-09-03 04:00] VITALS: BP 102/64
[2018-09-03] MEDS: OXYcodone/APAP 5/325MG TABLET PO PRN (05:29)
[2018-09-03] MEDS: METRONIDAZOLE PMX 500MG/100ML 100 ML IV SCH ×4 (05:29→23:09)
[2018-09-03] MEDS: PERCOCET MC SCH (05:30)
[2018-09-03 08:04] LABS: MEAN CORPUSCULAR HGB CONC 33.6 g/dL (33.2-36.2); MEAN CORPUSCULAR VOLUME 86.3 fL (81-97); MEAN PLATELET VOLUME 8.1 fL (7.4-10.4); PLATELET COUNT 72 x10^3/uL (130-400); RED BLOOD COUNT 2.61 x10^6/uL (4.38-5.82); RED CELL DISTRIBUTION WIDTH 17.1 % (9.4-14.8)
[2018-09-03 08:06] LABS: ANION GAP 9 mmol/L (5-15); CALCIUM 7.5 mg/dL (8.5-10.1); CHLORIDE 112 mmol/L (98-107); CREATININE 0.86 mg/dL (0.7-1.3)
[2018-09-03 08:09] LABS: MD YES
[2018-09-03] MEDS: FLUCONAZOLE 100 MG TABLET PO SCH (08:17)
[2018-09-03] MEDS: ACYCLOVIR 400 MG TABLET PO SCH ×2 (08:17→20:10)
[2018-09-03] MEDS: PANTOPRAZOLE 40 MG IV IVPush SCH (08:17)
[2018-09-03] MEDS: POTASSIUM CHLORIDE 20 MEQ TAB.ER.PRT PO SCH ×3 (08:17→17:12)
[2018-09-03] MEDS: SILVER SULF. CRM 1% , 25GM TP SCH ×2 (08:18→20:10)
[2018-09-03 08:22] LABS: BANDS%(MANUAL) 24 % (0-7); LYMPH#(MANUAL) 0.14 x10^3/uL (1-3.4); LYMPHS% (MANUAL) 3 % (22-44); MONOS#(MANUAL) 0.32 x10^3/uL (0.3-2.7); MONOS% (MANUAL) 7 % (2-9); SEGS% (MANUAL) 66 % (42-75)
[2018-09-03 08:23] LABS: NRBC % (MANUAL) 1 % (0-1); PMNS WITH VACUOLES 1+; SEG#(MANUAL) 3.08 x10^3/uL (1.8-6.8); TOXIC GRAN 1+
[2018-09-03 08:24] LABS: ANISOCYTOSIS 1+; OVALOCYTES 1+; POLYCHROMASIA 1+; TEAR DROPS 1+
[2018-09-03 08:25] LABS: <PLATELET ESTIMATE> DECREASED; <PLT MORPHOLOGY> NORMAL PLT MORPH
[2018-09-03] MEDS: SODIUM CHLORIDE 0.9% 1,000 ML IV SCH (10:00)
[2018-09-03] MEDS: VANCOMYCIN 1,800 MG in SODIUM CHLORIDE 0.9% 250 ML IV SCH (11:33)
[2018-09-03 15:17] VITALS: BP 124/75
[2018-09-03 18:24] VITALS: BP 125/83
[2018-09-03] MEDS: morphine SULFATE 10 MG/ML, 1ML IVPush PRN (22:16)
[2018-09-04] MEDS: VANCOMYCIN 50 MG/ML ORAL SUSP PO SCH ×4 (02:09→20:59)
[2018-09-04] MEDS: PIPERACILLIN/TAZO/PMX 4.5GM 100 ML IV SCH ×4 (02:09→23:07)
[2018-09-04] MEDS: morphine SULFATE 10 MG/ML, 1ML IVPush PRN ×4 (02:16→23:07)
[2018-09-04 04:02] VITALS: BP 105/71
[2018-09-04 04:58] LABS: ANION GAP 7 mmol/L (5-15); CALCIUM 8.1 mg/dL (8.5-10.1); CHLORIDE 110 mmol/L (98-107); MEAN CORPUSCULAR HEMOGLOBIN 29.5 pg (27.5-34.5); MEAN CORPUSCULAR HGB CONC 34.2 g/dL (33.2-36.2); MEAN CORPUSCULAR VOLUME 86.2 fL (81-97); MEAN PLATELET VOLUME 8.1 fL (7.4-10.4); PLATELET COUNT 74 x10^3/uL (130-400); RED BLOOD COUNT 2.68 x10^6/uL (4.38-5.82); RED CELL DISTRIBUTION WIDTH 17.6 % (9.4-14.8)
[2018-09-04 05:01] LABS: CREATININE 0.88 mg/dL (0.7-1.3)
[2018-09-04] MEDS: VANCOMYCIN 1,800 MG in SODIUM CHLORIDE 0.9% 250 ML IV SCH ×2 (05:32→20:58)
[2018-09-04 05:43] LABS: MD YES
[2018-09-04 05:46] LABS: BAND#(MANUAL) 0.52 x10^3/uL; BANDS%(MANUAL) 9 % (0-7); LYMPH#(MANUAL) 0.29 x10^3/uL (1-3.4); LYMPHS% (MANUAL) 5 % (22-44); MONOS#(MANUAL) 0.06 x10^3/uL (0.3-2.7); MONOS% (MANUAL) 1 % (2-9); SEG#(MANUAL) 4.93 x10^3/uL (1.8-6.8); SEGS% (MANUAL) 85 % (42-75)
[2018-09-04 05:47] LABS: ANISOCYTOSIS 1+
[2018-09-04 05:48] LABS: <PLATELET ESTIMATE> DECREASED; <PLT MORPHOLOGY> NORMAL PLT MORPH; POLYCHROMASIA 1+; TEAR DROPS 1+
[2018-09-04] MEDS: SIMETHICONE 125 MG CHEW TAB PO SCH ×4 (07:59→21:06)
[2018-09-04] MEDS: METRONIDAZOLE PMX 500MG/100ML 100 ML IV SCH ×3 (07:59→18:49)
[2018-09-04] MEDS: POTASSIUM CHLORIDE 20 MEQ TAB.ER.PRT PO SCH ×5 (08:05→18:49)
[2018-09-04] MEDS: ACYCLOVIR 400 MG TABLET PO SCH ×2 (08:05→21:06)
[2018-09-04] MEDS: PANTOPRAZOLE 40 MG IV IVPush SCH (08:05)
[2018-09-04] MEDS: FLUCONAZOLE 100 MG TABLET PO SCH (08:06)
[2018-09-04 09:06] VITALS: BP 133/86
[2018-09-04] MEDS: SILVER SULF. CRM 1% , 25GM TP SCH ×2 (10:40→20:58)
[2018-09-04 12:21] VITALS: BP 119/82
[2018-09-04 20:04] VITALS: BP 119/77
[2018-09-05] MEDS: METRONIDAZOLE PMX 500MG/100ML 100 ML IV SCH ×4 (01:00→19:56)
[2018-09-05 01:05] VITALS: BP 112/73
[2018-09-05] MEDS: VANCOMYCIN 50 MG/ML ORAL SUSP PO SCH ×4 (03:17→19:56)
[2018-09-05] MEDS ORDERED: CATHFLO-ALTEPLASE 2 MG/2 ML CATHFLUSH ONE ×4 (04:00→10:30)
[2018-09-05] MEDS: PIPERACILLIN/TAZO/PMX 4.5GM 100 ML IV SCH ×4 (04:30→23:55)
[2018-09-05 06:22] LABS: MEAN CORPUSCULAR HEMOGLOBIN 28.8 pg (27.5-34.5); MEAN CORPUSCULAR HGB CONC 33.8 g/dL (33.2-36.2); MEAN CORPUSCULAR VOLUME 85.2 fL (81-97); MEAN PLATELET VOLUME 8.1 fL (7.4-10.4); PLATELET COUNT 73 x10^3/uL (130-400); RED BLOOD COUNT 2.84 x10^6/uL (4.38-5.82); RED CELL DISTRIBUTION WIDTH 17.7 % (9.4-14.8)
[2018-09-05 06:36] LABS: ALANINE AMINOTRANSFERASE 13 U/L (12-78); ALBUMIN 1.8 g/dL (3.4-5.0); ANION GAP 9 mmol/L (5-15); CALCIUM 8.1 mg/dL (8.5-10.1); CHLORIDE 109 mmol/L (98-107)
[2018-09-05] MEDS: SIMETHICONE 125 MG CHEW TAB PO SCH ×4 (06:36→19:56)
[2018-09-05 06:50] LABS: ALKALINE PHOSPHATASE 175 U/L (45-117); BILIRUBIN,TOTAL 0.6 mg/dL (0.2-1.0); CREATININE 0.88 mg/dL (0.7-1.3); PREALBUMIN 6.9 mg/dL (20.0-40.0)
[2018-09-05 06:51] LABS: BASOPHILS # (AUTO) 0.02 x10^3/uL (0-0.1); BASOPHILS % (AUTO) 0 % (0-1); EOSINOPHILS # (AUTO) 0.07 x10^3/uL (0-0.4); EOSINOPHILS % (AUTO) 1 % (1-7); LYMPHOCYTES # (AUTO) 0.27 x10^3/uL (1-3.4); LYMPHOCYTES % (AUTO) 4 % (22-44); MD SCAN; MONOCYTES # (AUTO) 0.26 x10^3/uL (0.2-0.8); MONOCYTES % (AUTO) 4 % (2-9); NEUTROPHILS # (AUTO) 6.45 x10^3/uL (1.8-6.8); NEUTROPHILS % (AUTO) 91 % (42-75)
[2018-09-05 07:58] VITALS: BP 119/78
[2018-09-05] MEDS: POTASSIUM CHLORIDE 20 MEQ TAB.ER.PRT PO SCH ×2 (08:00→08:02)
[2018-09-05] MEDS: FLUCONAZOLE 100 MG TABLET PO SCH (08:02)
[2018-09-05] MEDS: ACYCLOVIR 400 MG TABLET PO SCH ×2 (08:02→19:56)
[2018-09-05] MEDS: SILVER SULF. CRM 1% , 25GM TP SCH ×2 (08:03→19:57)
[2018-09-05] MEDS: PANTOPRAZOLE 40 MG IV IVPush SCH (09:00)
[2018-09-05] MEDS ORDERED: POTASSIUM CHLORIDE 20 MEQ TAB.ER.PRT PO ONE (09:30)
[2018-09-05] MEDS ORDERED: MAGNESIUM SULFATE PMX 2GM/50ML 50 ML IV ONE (09:30)
[2018-09-05] MEDS ORDERED: POTASSIUM PHOSPHATE 44 MEQ in SODIUM CHLORIDE 0.9% 500 ML IV ONE (09:30)
[2018-09-05 13:00] VITALS: BP 137/87
[2018-09-05] MEDS: VANCOMYCIN 1,800 MG in SODIUM CHLORIDE 0.9% 250 ML IV SCH (14:48)
[2018-09-05 21:17] VITALS: BP 125/82
[2018-09-05] MEDS: morphine SULFATE 10 MG/ML, 1ML IVPush PRN (21:41)
[2018-09-06] MEDS: METRONIDAZOLE PMX 500MG/100ML 100 ML IV SCH ×4 (00:49→19:42)
[2018-09-06 01:04] VITALS: BP 113/76
[2018-09-06] MEDS: VANCOMYCIN 50 MG/ML ORAL SUSP PO SCH ×4 (02:59→21:33)
[2018-09-06] MEDS: morphine SULFATE 10 MG/ML, 1ML IVPush PRN ×3 (03:19→23:57)
[2018-09-06 03:59] LABS: ALBUMIN 1.8 g/dL (3.4-5.0); ANION GAP 10 mmol/L (5-15); CALCIUM 7.8 mg/dL (8.5-10.1); CHLORIDE 108 mmol/L (98-107)
[2018-09-06 04:03] LABS: MEAN CORPUSCULAR HEMOGLOBIN 27.6 pg (27.5-34.5); MEAN CORPUSCULAR HGB CONC 32.1 g/dL (33.2-36.2); MEAN CORPUSCULAR VOLUME 85.9 fL (81-97); MEAN PLATELET VOLUME 8.6 fL (7.4-10.4); PLATELET COUNT 89 x10^3/uL (130-400); RED BLOOD COUNT 2.82 x10^6/uL (4.38-5.82); RED CELL DISTRIBUTION WIDTH 18.3 % (9.4-14.8)
[2018-09-06 04:23] LABS: BASOPHILS % (AUTO) 0 % (0-1); EOSINOPHILS # (AUTO) 0.12 x10^3/uL (0-0.4); EOSINOPHILS % (AUTO) 2 % (1-7); LYMPHOCYTES # (AUTO) 0.35 x10^3/uL (1-3.4); LYMPHOCYTES % (AUTO) 4 % (22-44); MD SCAN; MONOCYTES # (AUTO) 0.08 x10^3/uL (0.2-0.8); MONOCYTES % (AUTO) 1 % (2-9); NEUTROPHILS # (AUTO) 7.58 x10^3/uL (1.8-6.8); NEUTROPHILS % (AUTO) 93 % (42-75)
[2018-09-06] MEDS: PIPERACILLIN/TAZO/PMX 4.5GM 100 ML IV SCH ×4 (05:53→23:50)
[2018-09-06] MEDS: SIMETHICONE 125 MG CHEW TAB PO SCH ×4 (06:36→21:33)
[2018-09-06] MEDS: ACYCLOVIR 400 MG TABLET PO SCH ×2 (08:36→21:33)
[2018-09-06] MEDS: PANTOPRAZOLE 40 MG IV IVPush SCH (08:36)
[2018-09-06] MEDS: VANCOMYCIN 1,800 MG in SODIUM CHLORIDE 0.9% 250 ML IV SCH (08:36)
[2018-09-06] MEDS: FLUCONAZOLE 100 MG TABLET PO SCH (08:36)
[2018-09-06 08:56] VITALS: BP 112/71
[2018-09-06] MEDS: SILVER SULF. CRM 1% , 25GM TP SCH ×2 (11:26→21:34)
[2018-09-06] MEDS ORDERED: MAGNESIUM SULFATE PMX 2GM/50ML 50 ML IV ONE (12:00)
[2018-09-06 14:03] LABS: % IRON SATURATION 17 % (20-55); IRON LEVEL 25 mcg/dL (65-175); TOTAL IRON BINDING CAPACITY 149 mcg/dL (250-450)
[2018-09-06 14:34] VITALS: BP 129/83
[2018-09-06] MEDS: POTASSIUM CHLORIDE 20 MEQ TAB.ER.PRT PO SCH ×2 (14:52→16:26)
[2018-09-06 19:21] VITALS: BP 123/82
[2018-09-06] MEDS: IRON SUCROSE COMPLEX 100MG/5ML IV SCH (19:54)
[2018-09-07] MEDS: METRONIDAZOLE PMX 500MG/100ML 100 ML IV SCH ×4 (01:21→18:25)
[2018-09-07 01:42] VITALS: BP 109/75
[2018-09-07] MEDS: VANCOMYCIN 50 MG/ML ORAL SUSP PO SCH ×4 (02:55→20:38)
[2018-09-07] MEDS: morphine SULFATE 10 MG/ML, 1ML IVPush PRN (04:13)
[2018-09-07 04:29] LABS: MEAN CORPUSCULAR HEMOGLOBIN 29.5 pg (27.5-34.5); MEAN CORPUSCULAR HGB CONC 34.3 g/dL (33.2-36.2); MEAN CORPUSCULAR VOLUME 85.9 fL (81-97); PLATELET COUNT 155 x10^3/uL (130-400); RED BLOOD COUNT 2.97 x10^6/uL (4.38-5.82); RED CELL DISTRIBUTION WIDTH 18.1 % (9.4-14.8)
[2018-09-07 04:40] LABS: ALBUMIN 1.8 g/dL (3.4-5.0); ANION GAP 8 mmol/L (5-15); CALCIUM 7.8 mg/dL (8.5-10.1); CHLORIDE 110 mmol/L (98-107)
[2018-09-07 04:42] LABS: CREATININE 1.06 mg/dL (0.7-1.3)
[2018-09-07 04:47] LABS: BASOPHILS # (AUTO) 0.01 x10^3/uL (0-0.1); BASOPHILS % (AUTO) 0 % (0-1); EOSINOPHILS # (AUTO) 0.27 x10^3/uL (0-0.4); EOSINOPHILS % (AUTO) 3 % (1-7); LYMPHOCYTES # (AUTO) 0.41 x10^3/uL (1-3.4); LYMPHOCYTES % (AUTO) 4 % (22-44); MD SCAN; MONOCYTES # (AUTO) 0.05 x10^3/uL (0.2-0.8); MONOCYTES % (AUTO) 1 % (2-9); NEUTROPHILS # (AUTO) 9.13 x10^3/uL (1.8-6.8); NEUTROPHILS % (AUTO) 93 % (42-75)
[2018-09-07] MEDS: PIPERACILLIN/TAZO/PMX 4.5GM 100 ML IV SCH ×4 (05:30→23:31)
[2018-09-07] MEDS: SIMETHICONE 125 MG CHEW TAB PO SCH ×4 (06:36→20:38)
[2018-09-07 06:57] VITALS: BP 111/74
[2018-09-07] MEDS: POTASSIUM CHLORIDE 20 MEQ TAB.ER.PRT PO SCH ×2 (10:32→17:13)
[2018-09-07] MEDS: IRON SUCROSE COMPLEX 100MG/5ML IV SCH (10:32)
[2018-09-07] MEDS: SILVER SULF. CRM 1% , 25GM TP SCH ×2 (10:33→20:38)
[2018-09-07] MEDS: ACYCLOVIR 400 MG TABLET PO SCH (10:33)
[2018-09-07 13:55] VITALS: BP 118/78
[2018-09-07 19:11] VITALS: BP 110/74
[2018-09-07] MEDS: POTASSIUM CHLORIDE 10 MEQ in SODIUM CHLORIDE 0.9% 1,000 ML IV SCH (19:26)
[2018-09-08 00:16] VITALS: BP 123/82
[2018-09-08] MEDS: METRONIDAZOLE PMX 500MG/100ML 100 ML IV SCH ×4 (00:50→18:02)
[2018-09-08] MEDS: morphine SULFATE 10 MG/ML, 1ML IVPush PRN ×2 (00:57→05:14)
[2018-09-08 01:19] VITALS: BP 123/82
[2018-09-08] MEDS: VANCOMYCIN 50 MG/ML ORAL SUSP PO SCH ×3 (02:42→15:18)
[2018-09-08] MEDS: POTASSIUM CHLORIDE 10 MEQ in SODIUM CHLORIDE 0.9% 1,000 ML IV SCH ×2 (05:14→16:59)
[2018-09-08] MEDS: PIPERACILLIN/TAZO/PMX 4.5GM 100 ML IV SCH ×3 (05:38→18:00)
[2018-09-08 05:40] LABS: ALBUMIN 1.8 g/dL (3.4-5.0); ANION GAP 6 mmol/L (5-15); CALCIUM 7.9 mg/dL (8.5-10.1); CHLORIDE 112 mmol/L (98-107); CREATININE 0.91 mg/dL (0.7-1.3)
[2018-09-08 06:03] LABS: BASOPHILS # (AUTO) 0.03 x10^3/uL (0-0.1); BASOPHILS % (AUTO) 0 % (0-1); EOSINOPHILS # (AUTO) 0.46 x10^3/uL (0-0.4); EOSINOPHILS % (AUTO) 4 % (1-7); LYMPHOCYTES # (AUTO) 0.51 x10^3/uL (1-3.4); LYMPHOCYTES % (AUTO) 4 % (22-44); MD NO; MEAN CORPUSCULAR HEMOGLOBIN 29.3 pg (27.5-34.5); MEAN CORPUSCULAR VOLUME 86.3 fL (81-97); MEAN PLATELET VOLUME 8.8 fL (7.4-10.4); MONOCYTES # (AUTO) 0.34 x10^3/uL (0.2-0.8); MONOCYTES % (AUTO) 3 % (2-9); NEUTROPHILS # (AUTO) 10.22 x10^3/uL (1.8-6.8); NEUTROPHILS % (AUTO) 89 % (42-75); PLATELET COUNT 201 x10^3/uL (130-400); RED BLOOD COUNT 2.82 x10^6/uL (4.38-5.82); RED CELL DISTRIBUTION WIDTH 17.8 % (9.4-14.8)
[2018-09-08] MEDS: SIMETHICONE 125 MG CHEW TAB PO SCH ×3 (06:37→16:58)
[2018-09-08 07:16] VITALS: BP 113/77
[2018-09-08] MEDS ORDERED: MAGNESIUM SULFATE PMX 2GM/50ML 50 ML IV ONE (07:30)
[2018-09-08] MEDS ORDERED: FERR325T18 PO (08:30)
[2018-09-08] MEDS ORDERED: METR500T PO (08:30)
[2018-09-08] MEDS ORDERED: VANC1VIA3 PO (08:30)
[2018-09-08] MEDS: POTASSIUM CHLORIDE 20 MEQ TAB.ER.PRT PO SCH ×2 (09:01→16:58)
[2018-09-08] MEDS: SILVER SULF. CRM 1% , 25GM TP SCH (09:01)
[2018-09-08] MEDS: IRON SUCROSE COMPLEX 100MG/5ML IV SCH (09:01)
[2018-09-08 14:30] VITALS: BP 117/77
== END 2018-09-08 18:32 | disposition home or self-care (01) | DRG 871 ==
LOC: ED 22:07 → EDIP 23:45 → SUATTDRO 23:47 → ICU 09-02 05:42 → 3NW 09-03 14:04
PROVIDERS: ADMIT Hospitalist; ATTEND Hospitalist
PROC: 30233N1 Transfusion of Nonautologous Red Blood Cells into Peripheral Vein, Percutaneous Approach (ICD-10-PCS; principal; 2018-09-01)
DX: A41.4 Sepsis due to anaerobes (principal); E43 Unspecified severe protein-calorie malnutrition; R65.21 Severe sepsis with septic shock; I21.9 Acute myocardial infarction, unspecified; D61.818 Other pancytopenia; C83.30 Diffuse large B-cell lymphoma, unspecified site; A04.72 Enterocolitis due to Clostridium difficile, not specified as recurrent; K63.2 Fistula of intestine; N17.9 Acute kidney failure, unspecified; D64.81 Anemia due to antineoplastic chemotherapy; Z68.29 Body mass index [BMI] 29.0-29.9, adult; E86.0 Dehydration; M10.9 Gout, unspecified; D50.9 Iron deficiency anemia, unspecified; E83.42 Hypomagnesemia; E86.9 Volume depletion, unspecified; E87.6 Hypokalemia; G89.29 Other chronic pain; I27.20 Pulmonary hypertension, unspecified; I95.0 Idiopathic hypotension; K22.9 Disease of esophagus, unspecified; T45.1X5A Adverse effect of antineoplastic and immunosuppressive drugs, initial encounter; Z77.22 Contact with and (suspected) exposure to environmental tobacco smoke (acute) (chronic); Z86.19 Personal history of other infectious and parasitic diseases; Z87.891 Personal history of nicotine dependence; Z93.3 Colostomy status
CPT/HCPCS: 36415; 84145; 99291; J3370; 71045; 71275; 74177; 80048; 80053; 80202; 81001; 82040; 83540; 83550; 83605; 83690; 83735; 84100; 84134; 84484; 85025; 86850; 86900; 86923; 87040; 87081; 87086; 87324; 93005; 93306; 96365; 96367; G0378; J1756; J2543; J2997; J3475; J3480; Q9967; C9113; J1447; J2270; J7030; J7040; J7050; P9016

== ENCOUNTER → 2018-09-13 | Outpatient (CLI) | payer OTHER ==
[~2018-09-13] MED LIST changes: +ACYCLOVIR PO; +FERR325T18 PO; +FLUCONAZOLE PO; +LEVAQUIN PO; +METR500T PO
== END | disposition home or self-care (01) ==
LOC: PETCFH 08:55
PROVIDERS: ATTEND Internal Medicine Hematology & Oncology
DX: I31.3 Pericardial effusion (noninflammatory) (principal); J90 Pleural effusion, not elsewhere classified
CPT/HCPCS: 78815; A9552

== ENCOUNTER 2018-11-05 08:00 | Inpatient (IN) | payer MEDICAID, OTHER ==
[~2018-11-05] VITALS: Ht 175.3 cm; Wt 81.5 kg
[2018-11-05 09:42] VITALS: BP 143/84
[2018-11-05 10:30] LABS: BASOPHILS # (AUTO) 0.01 x10^3/uL (0-0.1); BASOPHILS % (AUTO) 0 % (0-1); EOSINOPHILS # (AUTO) 0.13 x10^3/uL (0-0.4); EOSINOPHILS % (AUTO) 2 % (1-7); LYMPHOCYTES # (AUTO) 0.44 x10^3/uL (1-3.4); LYMPHOCYTES % (AUTO) 8 % (22-44); MD NO; MEAN CORPUSCULAR HGB CONC 33.9 g/dL (33.2-36.2); MEAN CORPUSCULAR VOLUME 91.3 fL (81-97); MEAN PLATELET VOLUME 7.5 fL (7.4-10.4); MONOCYTES # (AUTO) 0.27 x10^3/uL (0.2-0.8); MONOCYTES % (AUTO) 5 % (2-9); NEUTROPHILS # (AUTO) 4.57 x10^3/uL (1.8-6.8); NEUTROPHILS % (AUTO) 84 % (42-75); PLATELET COUNT 205 x10^3/uL (130-400); RED BLOOD COUNT 2.62 x10^6/uL (4.38-5.82); RED CELL DISTRIBUTION WIDTH 17.6 % (9.4-14.8)
[2018-11-05 10:32] LABS: ALANINE AMINOTRANSFERASE 18 U/L (12-78); ANION GAP 4 mmol/L (5-15); CALCIUM 8.3 mg/dL (8.5-10.1); CHLORIDE 115 mmol/L (98-107); CREATININE 0.85 mg/dL (0.7-1.3)
[2018-11-05 10:34] LABS: ALKALINE PHOSPHATASE 121 U/L (45-117); BILIRUBIN,TOTAL 0.4 mg/dL (0.2-1.0); TOTAL PROTEIN 6.2 g/dL (6.4-8.2)
[2018-11-05] MEDS: SODIUM CHLORIDE 0.9% 1,000 ML IV SCH ×2 (11:24→22:36)
[2018-11-05] MEDS ORDERED: ACETAMINOPHEN 325 MG TABLET PO ONE (11:30)
[2018-11-05] MEDS ORDERED: DIPHENHYDRAMINE 50 MG/ML, 1ML IVPush ONE (11:30)
[2018-11-05] MEDS ORDERED: FAMOTIDINE 20 MG/2 ML IVPush ONE (11:30)
[2018-11-05] MEDS ORDERED: RITUXIMAB IV ONE (12:00)
[2018-11-05] MEDS: ENOXAPARIN 40 MG/0.4 ML SQ SCH (12:00)
[2018-11-05] MEDS ORDERED: SODIUM CHLORIDE 0.9% IV ONE (12:00)
[2018-11-05 14:11] VITALS: BP 134/87
[2018-11-05] MEDS ORDERED: ONDANSETRON 8 MG in SODIUM CHLORIDE 0.9% 50 ML IVPB ONE (18:00)
[2018-11-05] MEDS: [UNRECOGNIZED DRUG - OTHER] IV SCH (19:46)
[2018-11-05] MEDS: VINCRISTINE IV SCH (19:46)
[2018-11-05] MEDS: ETOPOSIDE IV SCH (19:46)
[2018-11-05] MEDS: DOXORUBICIN IV SCH (19:46)
[2018-11-05 21:08] VITALS: BP 140/80
[2018-11-06 02:36] VITALS: BP 150/90
[2018-11-06 04:59] LABS: MEAN CORPUSCULAR HEMOGLOBIN 31.2 pg (27.5-34.5); MEAN CORPUSCULAR HGB CONC 34.5 g/dL (33.2-36.2); MEAN CORPUSCULAR VOLUME 90.3 fL (81-97); MEAN PLATELET VOLUME 7.3 fL (7.4-10.4); PLATELET COUNT 229 x10^3/uL (130-400); RED BLOOD COUNT 2.67 x10^6/uL (4.38-5.82); RED CELL DISTRIBUTION WIDTH 17.3 % (9.4-14.8)
[2018-11-06 05:05] LABS: ALBUMIN 2.9 g/dL (3.4-5.0); ANION GAP 6 mmol/L (5-15); CALCIUM 8.5 mg/dL (8.5-10.1); CHLORIDE 112 mmol/L (98-107)
[2018-11-06 05:09] LABS: ALANINE AMINOTRANSFERASE 18 U/L (12-78); ALKALINE PHOSPHATASE 107 U/L (45-117); BILIRUBIN,TOTAL 0.6 mg/dL (0.2-1.0); CREATININE 0.64 mg/dL (0.7-1.3); TOTAL PROTEIN 6.1 g/dL (6.4-8.2)
[2018-11-06 05:39] LABS: BASOPHILS % (AUTO) 0 % (0-1); EOSINOPHILS # (AUTO) 0.05 x10^3/uL (0-0.4); EOSINOPHILS % (AUTO) 1 % (1-7); LYMPHOCYTES # (AUTO) 0.31 x10^3/uL (1-3.4); LYMPHOCYTES % (AUTO) 4 % (22-44); MONOCYTES # (AUTO) 0.05 x10^3/uL (0.2-0.8); MONOCYTES % (AUTO) 1 % (2-9); NEUTROPHILS # (AUTO) 7.48 x10^3/uL (1.8-6.8); NEUTROPHILS % (AUTO) 95 % (42-75)
[2018-11-06 05:52] LABS: MD SCAN
[2018-11-06 07:02] VITALS: BP 144/89
[2018-11-06] MEDS: SODIUM CHLORIDE 0.9% 1,000 ML IV SCH ×2 (08:31→17:26)
[2018-11-06] MEDS: ENOXAPARIN 40 MG/0.4 ML SQ SCH (12:01)
[2018-11-06 12:47] VITALS: BP 138/82
[2018-11-06] MEDS ORDERED: ACETAMINOPHEN 325 MG TABLET PO PRN (18:00)
[2018-11-06 18:44] VITALS: BP 148/82
[2018-11-06] MEDS: [UNRECOGNIZED DRUG - OTHER] IV SCH (20:03)
[2018-11-06] MEDS: DOXORUBICIN IV SCH (20:03)
[2018-11-06] MEDS: VINCRISTINE IV SCH (20:03)
[2018-11-06] MEDS: ETOPOSIDE IV SCH (20:03)
[2018-11-06] MEDS: ONDANSETRON 8 MG in SODIUM CHLORIDE 0.9% 50 ML IVPB SCH (20:09)
[2018-11-07 01:14] VITALS: BP 155/92
[2018-11-07] MEDS: SODIUM CHLORIDE 0.9% 1,000 ML IV SCH ×3 (03:39→23:33)
[2018-11-07 06:30] LABS: ALBUMIN 3.1 g/dL (3.4-5.0); ANION GAP 9 mmol/L (5-15); CALCIUM 8.5 mg/dL (8.5-10.1); CHLORIDE 110 mmol/L (98-107)
[2018-11-07 06:35] LABS: ALANINE AMINOTRANSFERASE 17 U/L (12-78); ALKALINE PHOSPHATASE 92 U/L (45-117); BILIRUBIN,TOTAL 0.5 mg/dL (0.2-1.0); TOTAL PROTEIN 5.8 g/dL (6.4-8.2)
[2018-11-07 06:50] LABS: BASOPHILS % (AUTO) 0 % (0-1); EOSINOPHILS # (AUTO) 0.33 x10^3/uL (0-0.4); EOSINOPHILS % (AUTO) 3 % (1-7); LYMPHOCYTES # (AUTO) 0.26 x10^3/uL (1-3.4); LYMPHOCYTES % (AUTO) 3 % (22-44); MD NO; MEAN CORPUSCULAR HEMOGLOBIN 31.2 pg (27.5-34.5); MEAN CORPUSCULAR HGB CONC 34.4 g/dL (33.2-36.2); MEAN CORPUSCULAR VOLUME 90.8 fL (81-97); MEAN PLATELET VOLUME 7.1 fL (7.4-10.4); MONOCYTES # (AUTO) 0.19 x10^3/uL (0.2-0.8); MONOCYTES % (AUTO) 2 % (2-9); NEUTROPHILS # (AUTO) 9.72 x10^3/uL (1.8-6.8); NEUTROPHILS % (AUTO) 93 % (42-75); PLATELET COUNT 243 x10^3/uL (130-400); RED BLOOD COUNT 2.57 x10^6/uL (4.38-5.82); RED CELL DISTRIBUTION WIDTH 18.1 % (9.4-14.8)
[2018-11-07 07:40] VITALS: BP 153/90
[2018-11-07] MEDS ORDERED: predniSONE 50MG TABLET ONE (08:11)
[2018-11-07] MEDS: ENOXAPARIN 40 MG/0.4 ML SQ SCH (10:56)
[2018-11-07] MEDS ORDERED: OXYcodone/APAP 5/325MG TABLET PO PRN (11:30)
[2018-11-07 13:42] VITALS: BP 151/89
[2018-11-07 19:17] VITALS: BP 131/77
[2018-11-07] MEDS: ONDANSETRON 8 MG in SODIUM CHLORIDE 0.9% 50 ML IVPB SCH (19:36)
[2018-11-07] MEDS: VINCRISTINE IV SCH (19:58)
[2018-11-07] MEDS: ETOPOSIDE IV SCH (19:58)
[2018-11-07] MEDS: [UNRECOGNIZED DRUG - OTHER] IV SCH (19:58)
[2018-11-07] MEDS: DOXORUBICIN IV SCH (19:58)
[2018-11-08 00:05] VITALS: BP 154/89
[2018-11-08 02:33] LABS: MEAN CORPUSCULAR HEMOGLOBIN 30.7 pg (27.5-34.5); MEAN CORPUSCULAR HGB CONC 33.6 g/dL (33.2-36.2); MEAN CORPUSCULAR VOLUME 91.4 fL (81-97); PLATELET COUNT 249 x10^3/uL (130-400); RED BLOOD COUNT 2.69 x10^6/uL (4.38-5.82)
[2018-11-08 02:47] LABS: ALANINE AMINOTRANSFERASE 31 U/L (12-78); ALBUMIN 3.1 g/dL (3.4-5.0); ANION GAP 6 mmol/L (5-15); CALCIUM 8.1 mg/dL (8.5-10.1); CHLORIDE 108 mmol/L (98-107); CREATININE 0.83 mg/dL (0.7-1.3)
[2018-11-08 02:49] LABS: ALKALINE PHOSPHATASE 96 U/L (45-117); BILIRUBIN,TOTAL 0.7 mg/dL (0.2-1.0); TOTAL PROTEIN 5.9 g/dL (6.4-8.2)
[2018-11-08 02:57] LABS: BASOPHILS # (AUTO) 0.01 x10^3/uL (0-0.1); BASOPHILS % (AUTO) 0 % (0-1); EOSINOPHILS # (AUTO) 0.08 x10^3/uL (0-0.4); EOSINOPHILS % (AUTO) 1 % (1-7); LYMPHOCYTES # (AUTO) 0.15 x10^3/uL (1-3.4); LYMPHOCYTES % (AUTO) 2 % (22-44); MD SCAN; MONOCYTES # (AUTO) 0.18 x10^3/uL (0.2-0.8); MONOCYTES % (AUTO) 2 % (2-9); NEUTROPHILS # (AUTO) 8.93 x10^3/uL (1.8-6.8); NEUTROPHILS % (AUTO) 96 % (42-75)
[2018-11-08 07:12] VITALS: BP 162/88
[2018-11-08] MEDS: SODIUM CHLORIDE 0.9% 1,000 ML IV SCH ×2 (08:54→18:38)
[2018-11-08] MEDS: ENOXAPARIN 40 MG/0.4 ML SQ SCH (12:30)
[2018-11-08 12:55] VITALS: BP 150/87
[2018-11-08 18:49] VITALS: BP 133/79
[2018-11-08] MEDS: ONDANSETRON 8 MG in SODIUM CHLORIDE 0.9% 50 ML IVPB SCH (20:19)
[2018-11-08] MEDS: VINCRISTINE IV SCH (20:57)
[2018-11-08] MEDS: DOXORUBICIN IV SCH (20:57)
[2018-11-08] MEDS: [UNRECOGNIZED DRUG - OTHER] IV SCH (20:57)
[2018-11-08] MEDS: ETOPOSIDE IV SCH (20:57)
[2018-11-09 01:57] VITALS: BP 153/85
[2018-11-09 04:17] LABS: MEAN CORPUSCULAR HEMOGLOBIN 29.8 pg (27.5-34.5); MEAN CORPUSCULAR HGB CONC 32.9 g/dL (33.2-36.2); MEAN CORPUSCULAR VOLUME 90.7 fL (81-97); PLATELET COUNT 251 x10^3/uL (130-400); RED CELL DISTRIBUTION WIDTH 17.9 % (9.4-14.8)
[2018-11-09 04:29] LABS: BASOPHILS # (AUTO) 0.01 x10^3/uL (0-0.1); BASOPHILS % (AUTO) 0 % (0-1); EOSINOPHILS % (AUTO) 0 % (1-7); LYMPHOCYTES % (AUTO) 1 % (22-44); MD SCAN; MONOCYTES # (AUTO) 0.26 x10^3/uL (0.2-0.8); MONOCYTES % (AUTO) 3 % (2-9); NEUTROPHILS # (AUTO) 8.35 x10^3/uL (1.8-6.8); NEUTROPHILS % (AUTO) 96 % (42-75)
[2018-11-09 04:30] LABS: ALANINE AMINOTRANSFERASE 57 U/L (12-78); ALBUMIN 3.1 g/dL (3.4-5.0); ANION GAP 9 mmol/L (5-15); CALCIUM 8.2 mg/dL (8.5-10.1); CHLORIDE 106 mmol/L (98-107)
[2018-11-09 04:32] LABS: ALKALINE PHOSPHATASE 93 U/L (45-117); BILIRUBIN,TOTAL 0.8 mg/dL (0.2-1.0); TOTAL PROTEIN 5.6 g/dL (6.4-8.2)
[2018-11-09] MEDS: SODIUM CHLORIDE 0.9% 1,000 ML IV SCH ×2 (05:25→16:56)
[2018-11-09 07:24] VITALS: BP 171/89
[2018-11-09 07:43] VITALS: BP 141/92
[2018-11-09] MEDS ORDERED: POTASSIUM CHLORIDE 20 MEQ in SODIUM CHLORIDE 0.9% 250 ML IV ONE (09:00)
[2018-11-09] MEDS ORDERED: POTASSIUM CHLORIDE 20 MEQ TAB.ER.PRT PO ONE (09:00)
[2018-11-09] MEDS: ENOXAPARIN 40 MG/0.4 ML SQ SCH (11:09)
[2018-11-09 14:16] VITALS: BP 154/98
[2018-11-09 19:37] VITALS: BP 150/93
[2018-11-09] MEDS: ONDANSETRON 8 MG in SODIUM CHLORIDE 0.9% 50 ML IVPB SCH (19:51)
[2018-11-09] MEDS ORDERED: CYCLOPHOSPHAMIDE IV ONE (22:00)
[2018-11-09] MEDS ORDERED: SODIUM CHLORIDE 0.9% IV ONE (22:00)
[2018-11-10 02:07] VITALS: BP 146/84
[2018-11-10] MEDS: SODIUM CHLORIDE 0.9% 1,000 ML IV SCH (04:00)
[2018-11-10 04:40] LABS: MEAN CORPUSCULAR HEMOGLOBIN 31.2 pg (27.5-34.5); MEAN CORPUSCULAR HGB CONC 34.5 g/dL (33.2-36.2); MEAN CORPUSCULAR VOLUME 90.6 fL (81-97); MEAN PLATELET VOLUME 7.2 fL (7.4-10.4); PLATELET COUNT 236 x10^3/uL (130-400); RED BLOOD COUNT 2.59 x10^6/uL (4.38-5.82); RED CELL DISTRIBUTION WIDTH 17.1 % (9.4-14.8)
[2018-11-10 04:48] LABS: ALBUMIN 3.1 g/dL (3.4-5.0); ANION GAP 6 mmol/L (5-15); CALCIUM 8.2 mg/dL (8.5-10.1); CHLORIDE 105 mmol/L (98-107)
[2018-11-10 04:52] LABS: ALANINE AMINOTRANSFERASE 71 U/L (12-78); ALKALINE PHOSPHATASE 92 U/L (45-117); BILIRUBIN,TOTAL 0.9 mg/dL (0.2-1.0); TOTAL PROTEIN 5.6 g/dL (6.4-8.2)
[2018-11-10 05:44] LABS: BASOPHILS % (AUTO) 0 % (0-1); EOSINOPHILS % (AUTO) 0 % (1-7); LYMPHOCYTES # (AUTO) 0.14 x10^3/uL (1-3.4); LYMPHOCYTES % (AUTO) 2 % (22-44); MD SCAN; MONOCYTES # (AUTO) 0.06 x10^3/uL (0.2-0.8); MONOCYTES % (AUTO) 1 % (2-9); NEUTROPHILS # (AUTO) 7.13 x10^3/uL (1.8-6.8); NEUTROPHILS % (AUTO) 97 % (42-75)
[2018-11-10 07:30] VITALS: BP 155/86
[2018-11-10] MEDS: ENOXAPARIN 40 MG/0.4 ML SQ SCH (11:30)
[2018-11-10 13:35] VITALS: BP 143/86
[2018-11-10] MEDS ORDERED: POTA20TA91 PO (13:35)
== END 2018-11-10 17:34 | disposition home or self-care (01) | DRG 847 ==
LOC: 3NW 08:56
PROVIDERS: ADMIT Internal Medicine Hematology & Oncology; ATTEND Internal Medicine Hematology & Oncology
DX: Z51.11 Encounter for antineoplastic chemotherapy (principal); C83.30 Diffuse large B-cell lymphoma, unspecified site; D64.81 Anemia due to antineoplastic chemotherapy; E87.6 Hypokalemia; T45.1X5A Adverse effect of antineoplastic and immunosuppressive drugs, initial encounter; Y92.89 Other specified places as the place of occurrence of the external cause
CPT/HCPCS: 36415; J3490; 80053; 83615; 85025; G0378; J1650; J2405; J3480; J9070; J9181; J1200; J7030; J7050; J7512; J9000; J9312; J9370

== ENCOUNTER 2018-11-26 08:00 | Inpatient (IN) | payer MEDICAID, OTHER ==
[~2018-11-26] VITALS: Ht 175.3 cm; Wt 81.7 kg
[~2018-11-26 08:00] MED LIST changes: +POTA20TA91 PO
[2018-11-26 09:45] LABS: BASOPHILS # (AUTO) 0.03 x10^3/uL (0-0.1); BASOPHILS % (AUTO) 1 % (0-1); EOSINOPHILS # (AUTO) 0.05 x10^3/uL (0-0.4); EOSINOPHILS % (AUTO) 1 % (1-7); LYMPHOCYTES # (AUTO) 0.48 x10^3/uL (1-3.4); LYMPHOCYTES % (AUTO) 7 % (22-44); MD NO; MEAN CORPUSCULAR HEMOGLOBIN 29.8 pg (27.5-34.5); MEAN CORPUSCULAR HGB CONC 32.7 g/dL (33.2-36.2); MEAN CORPUSCULAR VOLUME 91.2 fL (81-97); MEAN PLATELET VOLUME 7.4 fL (7.4-10.4); MONOCYTES # (AUTO) 0.34 x10^3/uL (0.2-0.8); MONOCYTES % (AUTO) 5 % (2-9); NEUTROPHILS # (AUTO) 6.02 x10^3/uL (1.8-6.8); NEUTROPHILS % (AUTO) 87 % (42-75); PLATELET COUNT 198 x10^3/uL (130-400); RED CELL DISTRIBUTION WIDTH 17.6 % (9.4-14.8)
[2018-11-26 09:57] LABS: ALANINE AMINOTRANSFERASE 16 U/L (12-78); ALBUMIN 3.3 g/dL (3.4-5.0); ANION GAP 5 mmol/L (5-15); CALCIUM 8.7 mg/dL (8.5-10.1); CHLORIDE 112 mmol/L (98-107)
[2018-11-26 10:00] VITALS: BP 120/80
[2018-11-26 10:00] LABS: ALKALINE PHOSPHATASE 102 U/L (45-117); BILIRUBIN,TOTAL 0.6 mg/dL (0.2-1.0); CREATININE 0.71 mg/dL (0.7-1.3)
[2018-11-26] MEDS: SODIUM CHLORIDE 0.9% 1,000 ML IV SCH ×3 (10:00→18:12)
[2018-11-26] MEDS ORDERED: DIPHENHYDRAMINE 50 MG/ML, 1ML IVPush ONE (12:30)
[2018-11-26] MEDS ORDERED: FAMOTIDINE 20 MG/2 ML IVPush ONE (12:30)
[2018-11-26] MEDS ORDERED: ACETAMINOPHEN 325 MG TABLET PO ONE (12:30)
[2018-11-26] MEDS: ENOXAPARIN 40 MG/0.4 ML SQ SCH (12:52)
[2018-11-26] MEDS ORDERED: SODIUM CHLORIDE 0.9% IV ONE (13:00)
[2018-11-26] MEDS ORDERED: RITUXIMAB IV ONE (13:00)
[2018-11-26 13:56] VITALS: BP 125/82
[2018-11-26] MEDS ORDERED: POTASSIUM CHLORIDE 20 MEQ TAB.ER.PRT PO ONE (15:14)
[2018-11-26] MEDS: ONDANSETRON 8 MG in SODIUM CHLORIDE 0.9% 50 ML IVPB SCH (17:27)
[2018-11-26] MEDS: [UNRECOGNIZED DRUG - OTHER] IV SCH (18:05)
[2018-11-26] MEDS: VINCRISTINE IV SCH (18:05)
[2018-11-26] MEDS: DOXORUBICIN IV SCH (18:05)
[2018-11-26] MEDS: ETOPOSIDE IV SCH (18:05)
[2018-11-26] MEDS ORDERED: OXYcodone/APAP 5/325MG TABLET PO PRN (18:30)
[2018-11-26 20:18] VITALS: BP 138/90
[2018-11-27 01:10] VITALS: BP 153/85
[2018-11-27] MEDS: SODIUM CHLORIDE 0.9% 1,000 ML IV SCH ×2 (04:03→14:11)
[2018-11-27 06:25] LABS: MEAN CORPUSCULAR HEMOGLOBIN 30.9 pg (27.5-34.5); MEAN CORPUSCULAR VOLUME 91.1 fL (81-97); MEAN PLATELET VOLUME 7.5 fL (7.4-10.4); PLATELET COUNT 205 x10^3/uL (130-400); RED BLOOD COUNT 3.12 x10^6/uL (4.38-5.82); RED CELL DISTRIBUTION WIDTH 17.3 % (9.4-14.8)
[2018-11-27 06:34] LABS: ALBUMIN 3.3 g/dL (3.4-5.0); ANION GAP 7 mmol/L (5-15); CALCIUM 9.3 mg/dL (8.5-10.1); CHLORIDE 112 mmol/L (98-107)
[2018-11-27 06:39] LABS: ALANINE AMINOTRANSFERASE 17 U/L (12-78); ALKALINE PHOSPHATASE 108 U/L (45-117); BILIRUBIN,TOTAL 0.7 mg/dL (0.2-1.0); CREATININE 0.69 mg/dL (0.7-1.3); TOTAL PROTEIN 6.3 g/dL (6.4-8.2)
[2018-11-27 07:41] VITALS: BP 155/99
[2018-11-27 07:42] LABS: BASOPHILS % (AUTO) 0 % (0-1); EOSINOPHILS # (AUTO) 0.14 x10^3/uL (0-0.4); EOSINOPHILS % (AUTO) 2 % (1-7); LYMPHOCYTES # (AUTO) 0.17 x10^3/uL (1-3.4); LYMPHOCYTES % (AUTO) 2 % (22-44); MD SCAN; MONOCYTES # (AUTO) 0.02 x10^3/uL (0.2-0.8); MONOCYTES % (AUTO) 0 % (2-9); NEUTROPHILS # (AUTO) 8.72 x10^3/uL (1.8-6.8); NEUTROPHILS % (AUTO) 96 % (42-75)
[2018-11-27] MEDS: POTASSIUM CHLORIDE 20 MEQ TAB.ER.PRT PO SCH (09:22)
[2018-11-27] MEDS: ENOXAPARIN 40 MG/0.4 ML SQ SCH (12:30)
[2018-11-27 14:28] VITALS: BP 144/92
[2018-11-27] MEDS: ONDANSETRON 8 MG in SODIUM CHLORIDE 0.9% 50 ML IVPB SCH (18:17)
[2018-11-27 19:04] VITALS: BP 144/87
[2018-11-27] MEDS: [UNRECOGNIZED DRUG - OTHER] IV SCH (19:31)
[2018-11-27] MEDS: ETOPOSIDE IV SCH (19:31)
[2018-11-27] MEDS: DOXORUBICIN IV SCH (19:31)
[2018-11-27] MEDS: VINCRISTINE IV SCH (19:31)
[2018-11-28] MEDS: SODIUM CHLORIDE 0.9% 1,000 ML IV SCH ×3 (00:07→19:21)
[2018-11-28 01:04] VITALS: BP 137/82
[2018-11-28 03:07] LABS: MEAN CORPUSCULAR HGB CONC 32.6 g/dL (33.2-36.2); MEAN CORPUSCULAR VOLUME 91.9 fL (81-97); MEAN PLATELET VOLUME 7.9 fL (7.4-10.4); PLATELET COUNT 227 x10^3/uL (130-400); RED BLOOD COUNT 3.27 x10^6/uL (4.38-5.82); RED CELL DISTRIBUTION WIDTH 17.4 % (9.4-14.8)
[2018-11-28 03:15] LABS: ALANINE AMINOTRANSFERASE 18 U/L (12-78); ALBUMIN 3.5 g/dL (3.4-5.0); ANION GAP 7 mmol/L (5-15); CHLORIDE 111 mmol/L (98-107); CREATININE 0.83 mg/dL (0.7-1.3)
[2018-11-28 03:26] LABS: ALKALINE PHOSPHATASE 103 U/L (45-117); BILIRUBIN,TOTAL 0.5 mg/dL (0.2-1.0); TOTAL PROTEIN 6.3 g/dL (6.4-8.2)
[2018-11-28 03:39] LABS: BASOPHILS % (AUTO) 0 % (0-1); EOSINOPHILS % (AUTO) 0 % (1-7); LYMPHOCYTES # (AUTO) 0.19 x10^3/uL (1-3.4); LYMPHOCYTES % (AUTO) 2 % (22-44); MD SCAN; MONOCYTES # (AUTO) 0.13 x10^3/uL (0.2-0.8); MONOCYTES % (AUTO) 1 % (2-9); NEUTROPHILS # (AUTO) 9.73 x10^3/uL (1.8-6.8); NEUTROPHILS % (AUTO) 97 % (42-75)
[2018-11-28 07:29] VITALS: BP 162/95
[2018-11-28] MEDS: POTASSIUM CHLORIDE 20 MEQ TAB.ER.PRT PO SCH (09:49)
[2018-11-28] MEDS: ENOXAPARIN 40 MG/0.4 ML SQ SCH (12:28)
[2018-11-28 14:00] VITALS: BP 150/87
[2018-11-28] MEDS: ONDANSETRON 8 MG in SODIUM CHLORIDE 0.9% 50 ML IVPB SCH (19:18)
[2018-11-28] MEDS: DOXORUBICIN IV SCH (19:54)
[2018-11-28] MEDS: VINCRISTINE IV SCH (19:54)
[2018-11-28] MEDS: [UNRECOGNIZED DRUG - OTHER] IV SCH (19:54)
[2018-11-28] MEDS: ETOPOSIDE IV SCH (19:54)
[2018-11-28 20:31] VITALS: BP 151/81
[2018-11-29 02:24] VITALS: BP 152/78
[2018-11-29 05:00] LABS: MEAN CORPUSCULAR HEMOGLOBIN 30.7 pg (27.5-34.5); MEAN CORPUSCULAR HGB CONC 33.6 g/dL (33.2-36.2); MEAN CORPUSCULAR VOLUME 91.4 fL (81-97); MEAN PLATELET VOLUME 7.7 fL (7.4-10.4); PLATELET COUNT 197 x10^3/uL (130-400); RED BLOOD COUNT 3.07 x10^6/uL (4.38-5.82); RED CELL DISTRIBUTION WIDTH 17.3 % (9.4-14.8)
[2018-11-29] MEDS: SODIUM CHLORIDE 0.9% 1,000 ML IV SCH (05:02)
[2018-11-29 05:07] LABS: ALANINE AMINOTRANSFERASE 20 U/L (12-78); ALBUMIN 3.4 g/dL (3.4-5.0); ANION GAP 7 mmol/L (5-15); CALCIUM 8.7 mg/dL (8.5-10.1); CHLORIDE 109 mmol/L (98-107); CREATININE 0.84 mg/dL (0.7-1.3)
[2018-11-29 05:09] LABS: ALKALINE PHOSPHATASE 93 U/L (45-117); BILIRUBIN,TOTAL 0.6 mg/dL (0.2-1.0); TOTAL PROTEIN 5.9 g/dL (6.4-8.2)
[2018-11-29 05:55] LABS: BASOPHILS % (AUTO) 0 % (0-1); EOSINOPHILS % (AUTO) 0 % (1-7); LYMPHOCYTES # (AUTO) 0.15 x10^3/uL (1-3.4); LYMPHOCYTES % (AUTO) 1 % (22-44); MD SCAN; MONOCYTES # (AUTO) 0.21 x10^3/uL (0.2-0.8); MONOCYTES % (AUTO) 2 % (2-9); NEUTROPHILS # (AUTO) 9.73 x10^3/uL (1.8-6.8); NEUTROPHILS % (AUTO) 97 % (42-75)
[2018-11-29 07:23] VITALS: BP 166/89
[2018-11-29] MEDS: POTASSIUM CHLORIDE 20 MEQ TAB.ER.PRT PO SCH (08:42)
[2018-11-29] MEDS: ENOXAPARIN 40 MG/0.4 ML SQ SCH (11:45)
[2018-11-29 13:49] VITALS: BP 152/86
[2018-11-29] MEDS: ONDANSETRON 8 MG in SODIUM CHLORIDE 0.9% 50 ML IVPB SCH (18:15)
[2018-11-29] MEDS: ETOPOSIDE IV SCH (19:55)
[2018-11-29] MEDS: [UNRECOGNIZED DRUG - OTHER] IV SCH (19:55)
[2018-11-29] MEDS: DOXORUBICIN IV SCH (19:55)
[2018-11-29] MEDS: VINCRISTINE IV SCH (19:55)
[2018-11-29 21:46] VITALS: BP 147/84
[2018-11-30 00:23] VITALS: BP 161/91
[2018-11-30] MEDS: SODIUM CHLORIDE 0.9% 1,000 ML IV SCH ×3 (02:30→20:29)
[2018-11-30 05:55] LABS: MEAN CORPUSCULAR HEMOGLOBIN 30.6 pg (27.5-34.5); MEAN CORPUSCULAR HGB CONC 33.4 g/dL (33.2-36.2); MEAN CORPUSCULAR VOLUME 91.6 fL (81-97); MEAN PLATELET VOLUME 7.9 fL (7.4-10.4); PLATELET COUNT 185 x10^3/uL (130-400); RED BLOOD COUNT 3.15 x10^6/uL (4.38-5.82); RED CELL DISTRIBUTION WIDTH 17.6 % (9.4-14.8)
[2018-11-30 06:03] LABS: ALBUMIN 3.3 g/dL (3.4-5.0); ANION GAP 8 mmol/L (5-15); CALCIUM 8.8 mg/dL (8.5-10.1); CHLORIDE 108 mmol/L (98-107)
[2018-11-30 06:07] LABS: ALANINE AMINOTRANSFERASE 22 U/L (12-78); ALKALINE PHOSPHATASE 87 U/L (45-117); CREATININE 0.69 mg/dL (0.7-1.3); TOTAL PROTEIN 5.8 g/dL (6.4-8.2)
[2018-11-30 06:35] LABS: MD YES
[2018-11-30 06:38] LABS: LYMPH#(MANUAL) 0.33 x10^3/uL (1-3.4); LYMPHS% (MANUAL) 3 % (22-44); MONOS#(MANUAL) 0.11 x10^3/uL (0.3-2.7); MONOS% (MANUAL) 1 % (2-9); SEG#(MANUAL) 10.56 x10^3/uL (1.8-6.8); SEGS% (MANUAL) 96 % (42-75)
[2018-11-30 06:39] LABS: ANISOCYTOSIS 1+; OVALOCYTES 1+
[2018-11-30 06:40] LABS: <PLATELET ESTIMATE> ADEQUATE; <PLT MORPHOLOGY> NORMAL PLT MORPH
[2018-11-30] MEDS: POTASSIUM CHLORIDE 20 MEQ TAB.ER.PRT PO SCH (08:32)
[2018-11-30 08:40] VITALS: BP 157/90
[2018-11-30] MEDS: ENOXAPARIN 40 MG/0.4 ML SQ SCH (12:27)
[2018-11-30 16:49] VITALS: BP 156/92
[2018-11-30] MEDS: ONDANSETRON 8 MG in SODIUM CHLORIDE 0.9% 50 ML IVPB SCH (18:28)
[2018-11-30 19:53] VITALS: BP 154/90
[2018-11-30] MEDS ORDERED: CYCLOPHOSPHAMIDE IV ONE (21:00)
[2018-11-30] MEDS ORDERED: SODIUM CHLORIDE 0.9% IV ONE (21:00)
[2018-12-01 01:07] VITALS: BP 158/93
[2018-12-01] MEDS: SODIUM CHLORIDE 0.9% 1,000 ML IV SCH ×2 (05:31→15:15)
[2018-12-01 05:48] LABS: MEAN CORPUSCULAR HEMOGLOBIN 31.5 pg (27.5-34.5); MEAN CORPUSCULAR HGB CONC 34.7 g/dL (33.2-36.2); MEAN CORPUSCULAR VOLUME 90.7 fL (81-97); MEAN PLATELET VOLUME 8.1 fL (7.4-10.4); PLATELET COUNT 174 x10^3/uL (130-400); RED BLOOD COUNT 3.05 x10^6/uL (4.38-5.82)
[2018-12-01 05:53] LABS: ALBUMIN 3.3 g/dL (3.4-5.0); ANION GAP 5 mmol/L (5-15); CALCIUM 8.7 mg/dL (8.5-10.1); CHLORIDE 109 mmol/L (98-107)
[2018-12-01 06:03] LABS: ALANINE AMINOTRANSFERASE 28 U/L (12-78); ALKALINE PHOSPHATASE 88 U/L (45-117); BILIRUBIN,TOTAL 0.8 mg/dL (0.2-1.0); CREATININE 0.74 mg/dL (0.7-1.3); TOTAL PROTEIN 5.5 g/dL (6.4-8.2)
[2018-12-01 06:15] LABS: MD YES
[2018-12-01 06:16] LABS: LYMPH#(MANUAL) 0.12 x10^3/uL (1-3.4); LYMPHS% (MANUAL) 1 % (22-44); SEG#(MANUAL) 11.98 x10^3/uL (1.8-6.8); SEGS% (MANUAL) 99 % (42-75)
[2018-12-01 06:17] LABS: <PLATELET ESTIMATE> ADEQUATE; <PLT MORPHOLOGY> NORMAL PLT MORPH; ANISOCYTOSIS 1+; OVALOCYTES 1+
[2018-12-01 06:18] LABS: TEAR DROPS 1+
[2018-12-01 07:59] VITALS: BP 146/87
[2018-12-01] MEDS: POTASSIUM CHLORIDE 20 MEQ TAB.ER.PRT PO SCH (08:31)
[2018-12-01] MEDS: ENOXAPARIN 40 MG/0.4 ML SQ SCH (12:37)
[2018-12-01 13:59] VITALS: BP 141/81
== END 2018-12-01 18:15 | disposition home or self-care (01) | DRG 842 ==
LOC: 3NW 08:01
PROVIDERS: ADMIT Internal Medicine Hematology & Oncology; ATTEND Internal Medicine Hematology & Oncology
PROC: 3E0330M Introduction of Antineoplastic, Monoclonal Antibody, into Peripheral Vein, Percutaneous Approach (ICD-10-PCS; principal; 2018-11-26)
DX: C83.30 Diffuse large B-cell lymphoma, unspecified site (principal); E87.6 Hypokalemia; D64.81 Anemia due to antineoplastic chemotherapy; T45.1X5A Adverse effect of antineoplastic and immunosuppressive drugs, initial encounter; Y92.89 Other specified places as the place of occurrence of the external cause
CPT/HCPCS: 36415; J3490; 80053; 83615; 84550; 85025; G0378; J1650; J2405; J9070; J9181; J1200; J7030; J7050; J7512; J9000; J9312; J9370